=== PATIENT | female | born 1980 | race Caucasian/White ===

== ENCOUNTER 2018-04-01 08:41 | Emergency (ER) | payer MEDICAID, SELFPAY ==
[2018-04-01 08:42] VITALS: BP 165/84; PULSE 98; RESP 12; TEMP 35.7; O2SAT 95; BMI 49.1
--- NOTE | 2018-04-01 08:57 | ED.VISSUMM ---
- ER Visit Summary Date of Service: 04/01/18 Chief Complaint: Suprapubic pelvic pain. History of Present Illness: The patient is a 37 F past medical history of reflux and prior cholecystectomy. Patient states her last several menstrual periods have been heavier than normal. Her last menstrual period was March 27 and ended yesterday on March 31. She states she has had some suprapubic discomfort. Describes it as cramping. She denies any dysuria, hematuria, urgency nor frequency. She denies any constipation, diarrhea or melena. She denies any fever or weight loss. She does not believe that she is . She denies any vaginal discharge. She has never had any type of pelvic surgery. Physical Examination: Very well-appearing 37-year-old female. No acute distress. Vital signs are stable and afebrile. H EENT exam unremarkable. Neck nontender. Lungs clear to auscultation bilaterally. Heart regular rhythm no murmur. Abdomen is soft. Nondistended. Normal bowel sounds without peritoneal signs. She has very minimal suprapubic tenderness. Both the right upper right lower quadrants are completely unremarkable. There are no hernias or masses. There are no signs of trauma. The patient is obese. Patient moving all 4 extremities. They are neurovascularly intact. Neurologically she is awake and alert. Pelvic exam done with a female nurse present in the room. External exam is unremarkable. No lesions. Speculum exam there was no vaginal bleeding. No discharge. No lesions. No blood in the vaginal vault. On bimanual exam she had some uterine tenderness. Due to her body habitus I could not appreciate either ovary. Test Results: Urinalysis shows acute abnormality. No infection. Urine test is negative. Emergency Department Course and Treatment: I discussed with the patient all her test results. She is comfortable being discharged home and following up with her BRAND PROTECTION MANAGER office this week. Treatment Plan: Patient will be discharged to home. She will follow-up with her BRAND PROTECTION MANAGER office [facility]. Tylenol and Motrin for pain. Disposition: Discharge Impression: Pelvic pain and heavy menses of uncertain etiology This note was generated with [employer] software. It may contain incorrect words, spelling, and punctuation that were not noted in review of the chart prior to signing ED Disposition - Plan for ED Patient: Disposition: Home or Assisted Living Chief Complaint: Female C/O Instructions: ED Pelvic Pain [facility] Referrals: Sylvie Corral MD [STAFF PHYSICIAN] - As soon as possible Additional Instructions: Call and follow-up with your BRAND PROTECTION MANAGER office. They will want to reevaluate you and they will decide if you need a pelvic ultrasound. Tylenol and Motrin for pain.
--- NOTE | 2018-04-01 09:00 | ED.DCSUM_ITS ---
- ER Visit Summary Date of Service: 04/01/18 Chief Complaint: Suprapubic pelvic pain. History of Present Illness: The patient is a 37 F past medical history of reflux and prior cholecystectomy. Patient states her last several menstrual periods have been heavier than normal. Her last menstrual period was March 27 and ended yesterday on March 31. She states she has had some suprapubic discomfort. Describes it as cramping. She denies any dysuria, hematuria, urgency nor frequency. She denies any constipation, diarrhea or melena. She denies any fever or weight loss. She does not believe that she is . She denies any vaginal discharge. She has never had any type of pelvic surgery. Physical Examination: Very well-appearing 37-year-old female. No acute distress. Vital signs are stable and afebrile. H EENT exam unremarkable. Neck nontender. Lungs clear to auscultation bilaterally. Heart regular rhythm no murmur. Abdomen is soft. Nondistended. Normal bowel sounds without peritoneal signs. She has very minimal suprapubic tenderness. Both the right upper right lower quadrants are completely unremarkable. There are no hernias or masses. There are no signs of trauma. The patient is obese. Patient moving all 4 extremities. They are neurovascularly intact. Neurologically she is awake and alert. Pelvic exam done with a female nurse present in the room. External exam is unremarkable. No lesions. Speculum exam there was no vaginal bleeding. No discharge. No lesions. No blood in the vaginal vault. On bimanual exam she had some uterine tenderness. Due to her body habitus I could not appreciate either ovary. Test Results: Urinalysis shows acute abnormality. No infection. Urine test is negative. Emergency Department Course and Treatment: I discussed with the patient all her test results. She is comfortable being discharged home and following up with her ENGAGEMENT QUALITY CONSULTANT office this week. Treatment Plan: Patient will be discharged to home. She will follow-up with her ENGAGEMENT QUALITY CONSULTANT office at the [facility]. Tylenol and Motrin for pain. Disposition: Discharge Impression: Pelvic pain and heavy menses of uncertain etiology This note was generated with [employer] software. It may contain incorrect words, spelling, and punctuation that were not noted in review of the chart prior to signing ED Disposition - Plan for ED Patient: Disposition: Home or Assisted Living Chief Complaint: Female C/O Instructions: ED Pelvic Pain [facility] Referrals: Sylvie Corral MD [STAFF PHYSICIAN] - As soon as possible Additional Instructions: Call and follow-up with your ENGAGEMENT QUALITY CONSULTANT office. They will want to reevaluate you and they will decide if you need a pelvic ultrasound. Tylenol and Motrin for pain.
[2018-04-01 09:07] LABS: Bacteria 0 SEEN /hpf (None Seen); Mucous, Urine 0 SEEN /hpf (<or=2+); Red Blood Cells-Urine 0 SEEN /hpf (0-5)
[2018-04-01 09:09] LABS: Color, Urine Yellow (Yellow); Glucose, Dipstick Normal (Normal); Ketone-Dipstick Negative (Negative); Leukocyte Esterase-Dipstick 500 /ul (Negative); Nitrite-Dipstick Negative (Negative); Occult Blood-Urine 250 /ul (Negative); Protein-Dipstick 30 mg/dl (Negative); Urine Bilirubin Dipstick Negative (Negative); Urine Clarity Sl. Cloudy (Clear); Urine Urobilinogen Normal (Normal)
[2018-04-01 09:12] LABS: Internal QC Validated? YES +Cl - CLEAR BKGD; Pregnancy, Urine Negative Negative
[2018-04-01 09:16] LABS: Amorphous Sediment 1+; Squamous Epithelial Cells - UA 0-5 SEEN /hpf (5-10); White Blood Cells 0-5 SEEN /hpf (0-5)
--- NOTE | 2018-04-01 10:02 | ED.DEP ---
ED Disposition - Plan for ED Patient: Disposition: Home or Assisted Living Chief Complaint: Female C/O Instructions: ED Pelvic Pain [facility] Referrals: Sylvie Corral MD [STAFF PHYSICIAN] - As soon as possible Additional Instructions: Call and follow-up with your MANAGER STUDENT SERVICES office. They will want to reevaluate you and they will decide if you need a pelvic ultrasound. Tylenol and Motrin for pain.
[2018-04-01 10:18] VITALS: BP 139/90; PULSE 87; RESP 18; O2SAT 100
--- OUTSIDE RECORDS SUMMARY | 2018-05-25 22:42 | XMS RPT_ITS ---
:1980 Author Organization OHIP Care Team Providers Name Role Phone MARÍA CRUZ Attending Unavailable KINA SAMANIEGO ([employer]) Attending Unavailable UTE GLYNN (STRAIGHTENER) Attending Unavailable KINA SAMANIEGO ([employer]) Attending Unavailable KINA SAMANIEGO ([employer]) Referring Unavailable María Cruz Primary Care Unavailable Valentino Madera Attending Unavailable PROBLEMS PROBLEMS DATE TYPE CONDITION / CODE ATTENDING STATUS SOURCE 04/03/2018 Active Pelvic and NA Active [facility] perineal pain / [facility] [place] R10.2(ICD-10) Repository 01/27/2018 Active Encounter for NA Active [facility] immunization / [facility] Z23(ICD-10) Repository 05/09/2017 Active Unknown / MARÍA CRUZ Active [facility] UNK(Unknown) D [facility] [place] Repository PROCEDURES PROCEDURES No Procedure Records FoundRESULTS RESULTS PROGRESS Observed: 04/03/2018 Status: COMPLETED Source: [place] 2:16 PM [facility] REPOSITORY HNO ID: [id number] Author: Paloma Wright Service: (none) Author Type: Hoist Operator Type: Progress Notes Filed: 04/03/2018 2:17 PM Note Text: Radiology Service Progress Note PATIENT NAME: Juan Daniel Stern DATE OF SERVICE: April 03, 2018 TIME: 2:16 PM PATIENT IDENTITY VERIFICATION COMPLETED USING TWO (2) METHODS: Patient confirmed name verbally and Date of . PATIENT GENDER DATA: Female. status: : No status: N/A PATIENT RELEVANT IMPLANT DATA REVIEWED: Not Applicable RADIOLOGY DEPARTMENT: Ultrasound PERIPHERAL IV DATA: Not applicable SIGNED BY: PALOMA WRIGHT RDMS RVT April 03, 2018 2:16 PM US FEMALE PELVIS Observed: 04/03/2018 Status: F Source: [facility] 2:15 PM [facility] REPOSITORY * * *Final Report* * * DATE OF EXAM: Apr 03 2018 2:15PM [facility]U 1060 - US FEMALE PELVIS TRANSVAG / PROCEDURE REASON: Pelvic pain * * * * Physician Interpretation * * * * EXAMINATION: TRANSVAGINAL AND LIMITED TRANSABDOMINAL PELVIC ULTRASOUND CLINICAL HISTORY: Pelvic pain since menses ended 03/31/2018 TECHNIQUE: Sonography of the pelvis was performed by transvaginal and transabdominal (limited) techniques. Images were obtained and stored in a permanent archive. MQ: UFP_[id number] COMPARISON: 05/26/2015 RESULT: Uterus size: 7.4 x 5.0 x 4.2 cm -Orientation: Anteverted -Myometrium: Normal sonographic appearance. -Endometrial echo complex: 0.5 cm , normal thickness -Cervix: normal Right ovary: 2.3 x 3.1 x 2.2 cm. A few small cysts/follicles are seen, largest 1.5 cm Arterial and venous flow is present throughout the ovary on color Doppler imaging with normal spectral waveforms. Left ovary: 2.1 x 1.9 x 1.5 cm cm Normal sonographic appearance. Arterial and venous flow is present throughout the left ovary on color Doppler imaging with normal spectral waveforms. Pelvis free fluid: None. IMPRESSION: No significant abnormalities Companion: LUIZ Transcribe Date/Time: Apr 04 2018 2:04P Dictated by : THOM ECHEVERRIA MD This examination was interpreted and the report reviewed and electronically signed by: THOM ECHEVERRIA MD on Apr 04 2018 2:07PM EST [id number] CNOV Observed: 04/03/2018 Status: COMPLETED Source: [place] 9:00 AM [facility] REPOSITORY Office Visit (WOOB) JUAN DANIEL STERN ([id number]) 1980 F Date Time Provider Department 04/03/18 9:00 AM KINA SAMANIEGO (DHARMESH) WOOB During your visit today, we recorded the following information about you: Blood pressure Weight Last Period 120/70 125 kg 03/27/18 Kina Samaniego APRN.CNP 04/03/2018 9:14 AM Signed Juan Daniel Stern is a 37 year old female who presents for problem visit Pelvic pain for 3 days. HPI: pt states that her menses ended on Monday and then the pain started that night. Describes the pain as shooting pain mostly under the belly button into the pelvic region. Denies any fever, chills, or urinary issues. PAST MEDICAL HISTORY Diagnosis Date - Allergic rhinitis - Depression with anxiety 04/14/2010 - GERD (gastroesophageal reflux disease) - Migraine with aura 04/14/2010 - Morbid obesity with BMI of 50.0-59.9, adult (HCC) PAST SURGICAL HISTORY Procedure Laterality Date - DANDC, DIAG AND/OR THERAPEUTIC Dilation AND curettage - REMOVAL GALLBLADDER Cholecystectomy FAMILY HISTORY Problem Relation Age of Onset - Diabetes Maternal Grandfather - other (PARKINSONS) Paternal Grandfather - Diabetes Maternal Grandmother - Hypertension Maternal Grandmother - Diabetes Mother - Hypertension Mother - Diabetes Father - other (Dementia) Father Front Temperal - Heart Maternal Uncle [place] - Diabetes Maternal Uncle Social History Marital status: Spouse name: JIMMY STERN Years of education: 12 Number of children: 3 Occupational History 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 benzonatate (TESSALON PERLE) 100 mg capsule Take 2 capsules by mouth three times daily as needed. (Patient not taking: Reported on 04/03/2018 ) albuterol HFA (VENTOLIN HFA) 90 mcg/actuation inhaler Inhale 2 Puffs as instructed every 4 hours as needed for Wheezing/Shortness of Breath. Omeprazole 40 mg capsule Take 1 capsule by mouth once daily. ibuprofen (MOTRIN) 800 mg tablet Take 1 tablet by mouth every 8 hours as needed for Pain. Take with food. fluticasone (FLONASE) 50 mcg/actuation nasal spray Use 2 Sprays in each nostril once daily. (Patient not taking: Reported on 04/03/2018 ) No current facility-administered medications for this visit. Allergies As of Date: 04/03/2018 (No Known Allergies) Fully Assessed 04/03/2018 REVIEW OF SYSTEMS Abdomen: see HPI Bladder: No dysuria, gross hematuria, urinary frequency, urinary urgency, or incontinence. Expanded ROS: N/A Allergies and current medication updated:Yes EXAM: Wt 275 lb 9.6 oz (125.0kg) LMP 03/27/2018 GENERAL: pleasant, female in no apparent distress HEENT: Normocephalic, atraumatic, mucus membranes moist and no lesions CHEST: Normal inspiratory effort ABDOMEN: soft, no masses and Moderate tenderness in periumbilical area, suprapubic area PELVIC: external genitalia normal, normal Bartholin's glands, urethra, [place]'s glands, no vulvar lesions, no cervical lesions, good vaginal support, physiologic discharge present, normal appearing perineal body and perianal region BIMANUAL: no adnexal masses and Moderate tenderness NEURO: alert and oriented x3,exam grossly non-focal ASSESSMENT AND PLAN: Pelvic pain Pelvic ultrasound Will call with results Kina Samaniego APRN.DHARMESH Referring Provider: SELF [200] Allergies As of Date: 04/03/2018 (No Known Allergies) Date Reviewed: 04/03/2018 Reviewed by: Kina Osullivan) Danette - Fully Assessed Reason for Visit: Pain [78] Cmt: with menses Primary Visit Diagnosis:Pelvic pain [R10.2] Order(s):US FEMALE PELVIS TRANSVAG [[id number]] Order #: [id number] FUTURE Prescriptions as of 04/03/2018 Sig: FLUOXETINE 40 MG CAPSULE Take 1 capsule by mouth once * ALBUTEROL SULFATE HFA 90 MCG/* Inhale 2 Puffs as instructed * OMEPRAZOLE 40 MG CAPSULE,URIEL* Take 1 capsule by mouth once * IBUPROFEN 800 MG TABLET Take 1 tablet by mouth every * Problem List As Of Date 04/03/2018 Noted Resolved Migraine with aura [G43.109] INVALID FOR* Depression with anxiety [F41.8] INVALID FOR* Viral wart of left thumb [B07.9] INVALID FOR* Intradermal nevus: of L hand prox dorsal 3rd fi*INVALID FOR* Actinic skin damage [L57.8] INVALID FOR* Ephelides [L81.2] INVALID FOR* GERD (gastroesophageal reflux disease) [K21.9] Allergic rhinitis [J30.9] Fibrocystic breast changes [N60.19] INVALID FOR* Morbid obesity with BMI of 50.0-59.9, adult (HC* Medications Discontinued During This Encounter benzonatate (TESSALON PERLE) 100 mg * 30 c* 0 03/24/2018 04/03/2018 Route: ORAL Sig: Take 2 capsules by mouth three times daily as needed. Patient not taking: Reported on 04/03/2018 Disc: Reason for discontinue is not on file. fluticasone (FLONASE) 50 mcg/actuati* 1 Will* 1 05/09/2017 04/03/2018 Route: EACH NOSTRIL Sig: Use 2 Sprays in each nostril once daily. Patient not taking: Reported on 04/03/2018 Disc: Reason for discontinue is not on file. Encounter Status:Closed by KINA SAMANIEGO on 04/03/18 PROGRESS Observed: 04/03/2018 Status: COMPLETED Source: [place] 8:55 AM [facility] REPOSITORY O ID: [id number] Author: Kina Samaniego Service: (none) Author Type: Nurse Practitioner Type: Progress Notes Filed: 04/03/2018 9:14 AM Note Text: Juan Daniel Stern is a 37 year old female who presents for problem visit Pelvic pain for 3 days. HPI: pt states that her menses ended on Monday and then the pain started that night. Describes the pain as shooting pain mostly under the belly button into the pelvic region. Denies any fever, chills, or urinary issues. PAST MEDICAL HISTORY Diagnosis Date - Allergic rhinitis - Depression with anxiety 04/14/2010 - GERD (gastroesophageal reflux disease) - Migraine with aura 04/14/2010 - Morbid obesity with BMI of 50.0-59.9, adult (HCC) PAST SURGICAL HISTORY Procedure Laterality Date - DANDC, DIAG AND/OR THERAPEUTIC 7 Dilation AND curettage - REMOVAL GALLBLADDER Cholecystectomy FAMILY HISTORY Problem Relation Age of Onset - Diabetes Maternal Grandfather - other (PARKINSONS) Paternal Grandfather - Diabetes Maternal Grandmother - Hypertension Maternal Grandmother - Diabetes Mother - Hypertension Mother - Diabetes Father - other (Dementia) Father Front Temperal - Heart Maternal Uncle [place] - Diabetes Maternal Uncle Social History Marital status: Spouse name: JIMMY STERN Years of education: 12 Number of children: 3 Occupational History 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 benzonatate (TESSALON PERLE) 100 mg capsule Take 2 capsules by mouth three times daily as needed. (Patient not taking: Reported on 04/03/2018 ) albuterol HFA (VENTOLIN HFA) 90 mcg/actuation inhaler Inhale 2 Puffs as instructed every 4 hours as needed for Wheezing/Shortness of Breath. Omeprazole 40 mg capsule Take 1 capsule by mouth once daily. ibuprofen (MOTRIN) 800 mg tablet Take 1 tablet by mouth every 8 hours as needed for Pain. Take with food. fluticasone (FLONASE) 50 mcg/actuation nasal spray Use 2 Sprays in each nostril once daily. (Patient not taking: Reported on 04/03/2018 ) No current facility-administered medications for this visit. Allergies As of Date: 04/03/2018 (No Known Allergies) Fully Assessed 04/03/2018 REVIEW OF SYSTEMS Abdomen: see HPI Bladder: No dysuria, gross hematuria, urinary frequency, urinary urgency, or incontinence. Expanded ROS: N/A Allergies and current medication updated:Yes EXAM: Wt 275 lb 9.6 oz (125.0kg) LMP 03/27/2018 GENERAL: pleasant, female in no apparent distress HEENT: Normocephalic, atraumatic, mucus membranes moist and no lesions CHEST: Normal inspiratory effort ABDOMEN: soft, no masses and Moderate tenderness in periumbilical area, suprapubic area PELVIC: external genitalia normal, normal Bartholin's glands, urethra, [place]'s glands, no vulvar lesions, no cervical lesions, good vaginal support, physiologic discharge present, normal appearing perineal body and perianal region BIMANUAL: no adnexal masses and Moderate tenderness NEURO: alert and oriented x3,exam grossly non-focal ASSESSMENT AND PLAN: Pelvic pain Pelvic ultrasound Will call with results Kina Samaniego APRN.[employer] DISCHARGE INSTRUCTION Observed: 04/01/2018 Status: F Source: [place] 4:37 PM [facility] REPOSITORY [facility] Medical Records Department [address] [place] [address] Discharge Instruction 04/01/18 1002 MR#: [id number] Acct: [id number] Name: JUAN DANIEL STERN Rep #: [id number] : 1980 37 From: Valentino Madera MD PCP: María Cruz MD Status: DEP ER ED Disposition - Plan for ED Patient: Disposition: Home or Assisted Living Chief Complaint: Female C/O Instructions: ED Pelvic Pain UKO Referrals: Sylvie Corral MD [STAFF PHYSICIAN] - As soon as possible Additional Instructions: Call and follow-up with your SALES DEPARTMENT SUPERVISOR office. They will want to reevaluate you and they will decide if you need a pelvic ultrasound. Tylenol and Motrin for pain. What to do if you have Problems For any increased pain, shortness of breath, bleeding, nausea or vomiting, chest pain, or any unexpected problems, contact your Primary Care Provider. Call [facility] ([phone]) or report to the closest Emergency Room. Call 911 if necessary. 04/01/18 6597 <Electronically signed by Valentino Madera MD> Date Valentino Madera MD Cosigner Signature (If Indicated): Date CC: María Cruz MD EMERGENCY DEPARTMENT Observed: 04/01/2018 Status: F Source: [place] SUMMARY 4:37 PM [facility] REPOSITORY [facility] Medical Records Department [address] [place] [address] Emergency Department Summary 04/01/18 0857 MR#: [id number] Acct: [id number] Name: JUAN DANIEL STERN Rep #: [id number] : 1980 37 From: Valentino Madera MD PCP: María Cruz MD Status: DEP ER - ER Visit Summary Date of Service: 04/01/18 Chief Complaint: Suprapubic pelvic pain. History of Present Illness: The patient is a 37 F past medical history of reflux and prior cholecystectomy. Patient states her last several menstrual periods have been heavier than normal. Her last menstrual period was March 27 and ended yesterday on March 31. She states she has had some suprapubic discomfort. Describes it as cramping. She denies any dysuria, hematuria, urgency nor frequency. She denies any constipation, diarrhea or melena. She denies any fever or weight loss. She does not believe that she is . She denies any vaginal discharge. She has never had any type of pelvic surgery. Physical Examination: Very well-appearing 37-year-old female. No acute distress. Vital signs are stable and afebrile. H EENT exam unremarkable. Neck nontender. Lungs clear to auscultation bilaterally. Heart regular rhythm no murmur. Abdomen is soft. Nondistended. Normal bowel sounds without peritoneal signs. She has very minimal suprapubic tenderness. Both the right upper right lower quadrants are completely unremarkable. There are no hernias or masses. There are no signs of trauma. The patient is obese. Patient moving all 4 extremities. They are neurovascularly intact. Neurologically she is awake and alert. Pelvic exam done with a female nurse present in the room. External exam is unremarkable. No lesions. Speculum exam there was no vaginal bleeding. No discharge. No lesions. No blood in the vaginal vault. On bimanual exam she had some uterine tenderness. Due to her body habitus I could not appreciate either ovary. Test Results: Urinalysis shows acute abnormality. No infection. Urine test is negative. Emergency Department Course and Treatment: I discussed with the patient all her test results. She is comfortable being discharged home and following up with her SALES DEPARTMENT SUPERVISOR office this week. Treatment Plan: Patient will be discharged to home. She will follow-up with her SALES DEPARTMENT SUPERVISOR [facility]. Tylenol and Motrin for pain. Disposition: Discharge Impression: Pelvic pain and heavy menses of uncertain etiology This note was generated with [employer] dictation software. It may contain incorrect words, spelling, and punctuation that were not noted in review of the chart prior to signing ED Disposition - Plan for ED Patient: Disposition: Home or Assisted Living Chief Complaint: Female C/O Instructions: ED Pelvic Pain UKO Referrals: Sylvie Corral MD [STAFF PHYSICIAN] - As soon as possible Additional Instructions: Call and follow-up with your SALES DEPARTMENT SUPERVISOR office. They will want to reevaluate you and they will decide if you need a pelvic ultrasound. Tylenol and Motrin for pain. What to do if you have Problems For any increased pain, shortness of breath, bleeding, nausea or vomiting, chest pain, or any unexpected problems, contact your Primary Care Provider. Call [facility] ([phone]) or report to the closest Emergency Room. Call 911 if necessary. 04/01/18 1637 <Electronically signed by Valentino Madera MD> Date Valentino Madera MD Cosigner Signature (If Indicated): Date CC: María Cruz MD DISCHARGE INSTRUCTION Observed: 04/01/2018 Status: F Source: [place] 4:37 PM [facility] REPOSITORY [facility] Medical Records Department [address] [place] [address] Discharge Instruction 04/01/18 0900 MR#: [id number] Acct: [id number] Name: JUAN DANIEL STERN Rep #: [id number] : 1980 37 From: Valentino Madera MD PCP: María Cruz MD Status: DEP ER ED Disposition - Plan for ED Patient: Disposition: Home or Assisted Living Chief Complaint: Female C/O Instructions: ED Pelvic Pain UKO Referrals: Sylvie Corral MD [STAFF PHYSICIAN] - As soon as possible Additional Instructions: Call and follow-up with your SALES DEPARTMENT SUPERVISOR office. They will want to reevaluate you and they will decide if you need a pelvic ultrasound. Tylenol and Motrin for pain. What to do if you have Problems For any increased pain, shortness of breath, bleeding, nausea or vomiting, chest pain, or any unexpected problems, contact your Primary Care Provider. Call [facility] ([phone]) or report to the closest Emergency Room. Call 911 if necessary. 04/01/18 3939 <Electronically signed by Valentino Madera MD> Date Valentino Madera MD Cosigner Signature (If Indicated): Date CC: María Cruz MD URINALYSIS, COMPLETE Collected: 04/01/2018 Status: F Source: [place] 9:05 AM [facility] REPOSITORY Order Comment: How was Urine Obtained? CLEAN CATCH TYPE CODE TESTS RESULT OUT OF RANGE REFERENCE UNITS LAB L400.3000 Yellow COLOR Normal Yellow LAB L400.3050 Clear Normal CLARITY Sl. Cloudy LAB L400.3200 Normal mg/dl Normal GLUCOSE, UR Normal LAB L400.3300 Negative mg/dL Normal BILIRUBIN URINE Negative LAB L400.3400 Negative mg/dl Normal KETONE UR Negative LAB L400.3465 1.002-1.030 Normal SP.GR. DIPSTX 1.020 LAB L400.3550 5.0 - 8.0 pH UR Normal 6.0 LAB L400.3600 Negative mg/dl High PROT 30 DIPSTX LAB L400.3700 Normal mg/dl Normal UROBILI Normal LAB L400.3750 Negative Normal NITRITE UR Negative LAB L400.3780 Negative /ul High OCCULT BLOOD-UR 250 LAB L400.3800 Negative /ul High LEUK ESTERASE 500 LAB L400.4050 0-5 /hpf WBC Normal 0-5 SEEN LAB L400.4100 0-5 /hpf 0 Normal RBC-UA SEEN LAB L400.4150 5-10 /hpf SQUAM Normal EPI 0-5 SEEN LAB L400.4300 None Seen /hpf 0 Normal BACTERIA SEEN LAB L400.4350 <or=2+ /hpf 0 Normal MUCUS, URINE SEEN LAB L400.4900 1+ Normal AMORPHOUS Performed By: #### L400.0001 #### [facility] [address] [place], [address] ,URINE Collected: 04/01/2018 Status: F Source: [place] 9:05 AM [facility] REPOSITORY TYPE CODE TESTS RESULT OUT OF REFERENCE UNITS RANGE LAB L400.8000 Negative Normal HCGUQUAL Negative Result Comment: Very dilute urine specimens, as indicated by a low specific gravity, may not contain international sales representative levels of hCG. If is still suspected, a first morning urine specimen should be collected 48 hours later and tested. Performed By: #### L400.7600 #### [facility] [address] [facility] [place] [place], [address] PROGRESS Observed: 03/24/2018 Status: COMPLETED Source: [place] 9:50 AM [facility] REPOSITORY HNO ID: [id number] Author: Anderson Fu) Dolores Service: (none) Author Type: Physician Synchronizer Type: Progress Notes Filed: 03/24/2018 10:32 AM Note Text: Subjective HPI Patient presents with congestion and cough for the past 10 days. She states she started off with cold symptoms which have actually gotten better but she is Cough lingering. She had had some green mucus. No fever or chills. No chest pain or shortness of breath. No wheezing. She denies history of asthma. She had smoked for about 3 years but quit 7 years ago. No vomiting or diarrhea. The cough is keeping her up at night. No sick contacts. Review of Systems Constitutional: Negative. HENT: Positive for congestion. Negative for ear pain and sore throat. Eyes: Negative. Respiratory: Positive for cough. Negative for sputum production, shortness of breath and wheezing. Cardiovascular: Negative. Skin: Negative. All other systems reviewed and are negative. PAST MEDICAL HISTORY Diagnosis Date - Allergic rhinitis - Depression with anxiety 04/14/2010 - GERD (gastroesophageal reflux disease) - Migraine with aura 04/14/2010 - Morbid obesity with BMI of 50.0-59.9, adult (HCC) Current Outpatient Prescriptions: Omeprazole 40 mg capsule Take 1 capsule by mouth once daily. Disp: 90 capsule Rfl: 3 ibuprofen (MOTRIN) 800 mg tablet Take 1 tablet by mouth every 8 hours as needed for Pain. Take with food. Disp: 60 tablet Rfl: 3 fluticasone (FLONASE) 50 mcg/actuation nasal spray Use 2 Sprays in each nostril once daily. Disp: 1 Bottle Rfl: 1 benzonatate (TESSALON PERLE) 100 mg capsule Take 2 capsules by mouth three times daily as needed. Disp: 30 capsule Rfl: 0 predniSONE (DELTASONE) 20 mg tablet Take 2 tablets by mouth once daily for 5 days. Disp: 10 tablet Rfl: 0 albuterol HFA (VENTOLIN HFA) 90 mcg/actuation inhaler Inhale 2 Puffs as instructed every 4 hours as needed for Wheezing/Shortness of Breath. Disp: 1 Inhaler Rfl: 0 [START ON 03/27/2018] azithromycin (ZITHROMAX Z-BUBBA) 250 mg tablet Take 2 tablets day one, then, 1 tablet daily until gone. Disp: 1 Package Rfl: 0 No current facility-administered medications for this visit. PAST SURGICAL HISTORY Procedure Laterality Date - DANDC, DIAG AND/OR THERAPEUTIC Dilation AND curettage - REMOVAL GALLBLADDER Cholecystectomy FAMILY HISTORY Problem Relation Age of Onset - Diabetes Maternal Grandfather - other (PARKINSONS) Paternal Grandfather - Diabetes Maternal Grandmother - Hypertension Maternal Grandmother - Diabetes Mother - Hypertension Mother - Diabetes Father - other (Dementia) Father Front Temperal - Heart Maternal Uncle [place] - Diabetes Maternal Uncle Social History Substance Use Topics - Smoking status: Former Smoker Packs/day: 0.50 Years: 6.00 Types: Cigarettes Quit date: 05/03/2010 - Smokeless tobacco: Never Used - Alcohol use No BP 140/80 Pulse 100 Temp 37.2 ?C (98.9 ?F) (Left Tympanic) Resp 18 Wt 127 kg (280 lb) SpO2 98% BMI 50.24 kg/m? Objective Physical Exam Constitutional: She is oriented to person, place, and time and well-developed, well-nourished, and in no distress. HENT: Head: Normocephalic and atraumatic. Right Ear: Tympanic membrane, external ear and ear canal normal. Left Ear: Tympanic membrane, external ear and ear canal normal. Nose: Mucosal edema and rhinorrhea present. Mouth/Throat: Uvula is midline, oropharynx is clear and moist and mucous membranes are normal. Neck: Normal range of motion. Neck supple. Cardiovascular: Normal rate, regular rhythm and normal heart sounds. Pulmonary/Chest: Effort normal and breath sounds normal. No respiratory distress. She has no wheezes. She has no rales. Lymphadenopathy: She has no cervical adenopathy. Neurological: She is alert and oriented to person, place, and time. Skin: Skin is warm and dry. No rash noted. Psychiatric: Affect and judgment normal. Nursing note and vitals reviewed. ASSESSMENT/PLAN: 1. Bronchitis - ICD9: 490, ICD10: J40 Patient symptoms likely still viral this point. I'll treat her with prednisone, Tessalon, and an inhaler. Discussed with her that if she is not better in the next 4-5 days she can go ahead and fill the Z-Bubba but likely does not need it. Patient was comfortable with this plan. Her vital signs are stable she is auctioneering well. Lungs are clear.Discussed with patient concerning symptoms to go to the emergency department or follow up here. Pt agreeable with this plan. Anderson Ferrer PA-C CNOV Observed: 03/24/2018 Status: COMPLETED Source: [place] 9:45 AM [facility] REPOSITORY Office Visit (WSTR) JUAN DANIEL STERN ([id number]) 1980 F Date Time Provider Department 03/24/18 9:45 AM ANDERSON FERRER) NNEKAWSTR During your visit today, we recorded the following information about you: Temperature Pulse Respiration Blood pressure 98.9 degrees 100/minute 18/minute 140/80 Weight 127 kg Anderson Ferrer PA-C 03/24/2018 10:32 AM Signed Subjective HPI Patient presents with congestion and cough for the past 10 days. She states she started off with cold symptoms which have actually gotten better but she is Cough lingering. She had had some green mucus. No fever or chills. No chest pain or shortness of breath. No wheezing. She denies history of asthma. She had smoked for about 3 years but quit 7 years ago. No vomiting or diarrhea. The cough is keeping her up at night. No sick contacts. Review of Systems Constitutional: Negative. HENT: Positive for congestion. Negative for ear pain and sore throat. Eyes: Negative. Respiratory: Positive for cough. Negative for sputum production, shortness of breath and wheezing. Cardiovascular: Negative. Skin: Negative. All other systems reviewed and are negative. PAST MEDICAL HISTORY Diagnosis Date - Allergic rhinitis - Depression with anxiety 04/14/2010 - GERD (gastroesophageal reflux disease) - Migraine with aura 04/14/2010 - Morbid obesity with BMI of 50.0-59.9, adult ([facility]) Current Outpatient Prescriptions: Omeprazole 40 mg capsule Take 1 capsule by mouth once daily. Disp: 90 capsule Rfl: 3 ibuprofen (MOTRIN) 800 mg tablet Take 1 tablet by mouth every 8 hours as needed for Pain. Take with food. Disp: 60 tablet Rfl: 3 fluticasone (FLONASE) 50 mcg/actuation nasal spray Use 2 Sprays in each nostril once daily. Disp: 1 Bottle Rfl: 1 benzonatate (TESSALON PERLE) 100 mg capsule Take 2 capsules by mouth three times daily as needed. Disp: 30 capsule Rfl: 0 predniSONE (DELTASONE) 20 mg tablet Take 2 tablets by mouth once daily for 5 days. Disp: 10 tablet Rfl: 0 albuterol HFA (VENTOLIN HFA) 90 mcg/actuation inhaler Inhale 2 Puffs as instructed every 4 hours as needed for Wheezing/Shortness of Breath. Disp: 1 Inhaler Rfl: 0 [START ON 03/27/2018] azithromycin (ZITHROMAX Z-BUBBA) 250 mg tablet Take 2 tablets day one, then, 1 tablet daily until gone. Disp: 1 Package Rfl: 0 No current facility-administered medications for this visit. PAST SURGICAL HISTORY Procedure Laterality Date - DANDC, DIAG AND/OR THERAPEUTIC Dilation AND curettage - REMOVAL GALLBLADDER Cholecystectomy FAMILY HISTORY Problem Relation Age of Onset - Diabetes Maternal Grandfather - other (PARKINSONS) Paternal Grandfather - Diabetes Maternal Grandmother - Hypertension Maternal Grandmother - Diabetes Mother - Hypertension Mother - Diabetes Father - other (Dementia) Father Front Temperal - Heart Maternal Uncle [place] - Diabetes Maternal Uncle Social History Substance Use Topics - Smoking status: Former Smoker Packs/day: 0.50 Years: 6.00 Types: Cigarettes Quit date: 05/03/2010 - Smokeless tobacco: Never Used - Alcohol use No BP 140/80 Pulse 100 Temp 37.2 ?C (98.9 ?F) (Left Tympanic) Resp 18 Wt 127 kg (280 lb) SpO2 98% BMI 50.24 kg/m? Objective Physical Exam Constitutional: She is oriented to person, place, and time and well-developed, well-nourished, and in no distress. HENT: Head: Normocephalic and atraumatic. Right Ear: Tympanic membrane, external ear and ear canal normal. Left Ear: Tympanic membrane, external ear and ear canal normal. Nose: Mucosal edema and rhinorrhea present. Mouth/Throat: Uvula is midline, oropharynx is clear and moist and mucous membranes are normal. Neck: Normal range of motion. Neck supple. Cardiovascular: Normal rate, regular rhythm and normal heart sounds. Pulmonary/Chest: Effort normal and breath sounds normal. No respiratory distress. She has no wheezes. She has no rales. Lymphadenopathy: She has no cervical adenopathy. Neurological: She is alert and oriented to person, place, and time. Skin: Skin is warm and dry. No rash noted. Psychiatric: Affect and judgment normal. Nursing note and vitals reviewed. ASSESSMENT/PLAN: 1. Bronchitis - ICD9: 490, ICD10: J40 Patient symptoms likely still viral this point. I'll treat her with prednisone, Tessalon, and an inhaler. Discussed with her that if she is not better in the next 4-5 days she can go ahead and fill the Z-Bubba but likely does not need it. Patient was comfortable with this plan. Her vital signs are stable she is auctioneering well. Lungs are clear.Discussed with patient concerning symptoms to go to the emergency department or follow up here. Pt agreeable with this plan. Anderson Ferrer PA-C Referring Provider: SELF [200] Allergies As of Date: 03/24/2018 (No Known Allergies) Date Reviewed: 03/24/2018 Reviewed by: Shelby Alvarado Ma - Fully Assessed Reason for Visit: Cough [28] Primary Visit Diagnosis:Bronchitis [J40] Order(s):benzonatate (TESSALON PERLE) 100 mg capsuleTake 2 capsules by mouth three times daily as needed.Disp: 30 capsuleRfl: 0 predniSONE (DELTASONE) 20 mg tabletTake 2 tablets by mouth once daily for 5 days.Disp: 10 tabletRfl: 0 albuterol HFA (VENTOLIN HFA) 90 mcg/actuation inhalerInhale 2 Puffs as instructed every 4 hours as needed for Wheezing/Shortness of Breath.Disp: 1 InhalerRfl: 0 [START ON 03/27/2018] azithromycin (ZITHROMAX Z-BUBBA) 250 mg tabletTake 2 tablets day one, then, 1 tablet daily until gone.Disp: 1 PackageRfl: 0 Prescriptions as of 03/24/2018 Sig: OMEPRAZOLE 40 MG CAPSULE,URIEL* Take 1 capsule by mouth once * IBUPROFEN 800 MG TABLET Take 1 tablet by mouth every * FLUTICASONE 50 MCG/ACTUATION * Use 2 Sprays in each nostril * BENZONATATE 100 MG CAPSULE Take 2 capsules by mouth thre* PREDNISONE 20 MG TABLET Take 2 tablets by mouth once * ALBUTEROL SULFATE HFA 90 MCG/* Inhale 2 Puffs as instructed * AZITHROMYCIN 250 MG TABLET Take 2 tablets day one, then,* Problem List As Of Date 03/24/2018 Noted Resolved Migraine with aura [G43.109] INVALID FOR* Depression with anxiety [F41.8] INVALID FOR* Viral wart of left thumb [B07.9] INVALID FOR* Intradermal nevus: of L hand prox dorsal 3rd fi*INVALID FOR* Actinic skin damage [L57.8] INVALID FOR* Ephelides [L81.2] INVALID FOR* GERD (gastroesophageal reflux disease) [K21.9] Allergic rhinitis [J30.9] Fibrocystic breast changes [N60.19] INVALID FOR* Morbid obesity with BMI of 50.0-59.9, adult ([facility]* Prescriptions ordered this encounter Disp Refills Start End BENZONATATE 100 MG CAPSULE 30 c* 0 03/24/2018 Route: ORAL Sig: Take 2 capsules by mouth three times daily as needed. PREDNISONE 20 MG TABLET 10 t* 0 03/24/2018 03/29/2018 Route: ORAL Sig: Take 2 tablets by mouth once daily for 5 days. ALBUTEROL SULFATE HFA 90 MCG/ACTUATI* 1 In* 0 03/24/2018 Route: INHALATION Sig: Inhale 2 Puffs as instructed every 4 hours as needed for Wheezing/Shortness of Breath. AZITHROMYCIN 250 MG TABLET 1 Pa* 0 03/27/2018 04/01/2018 Class: Print RX Sig: Take 2 tablets day one, then, 1 tablet daily until gone. Encounter Status:Closed by ANDERSON FERRER PA-C on 03/24/18 CNNURSE Observed: 01/27/2018 Status: COMPLETED Source: [place] 10:40 AM [facility] REPOSITORY Nurse Visit (CORWST) JUAN DANIEL STERN ([id number]) 1980 F Date Time Provider Department 01/27/18 10:40 AM NURSE [facility] CORW[facility] During your visit today, we recorded the following information about you: Sonal Mcfarlane LPN 01/27/2018 10:44 AM Signed 37 year old female here for INACTIVATED INFLUENZA VACCINE. [id number] Season Patient is identified by name and date of : Yes [] CONTRAINDICATIONS color enhanced section Age less than 6 months? No Allergy to eggs, chicken, chicken feathers, or chicken dander? No Allergy to thimerosal (a preservative) or formaldehyde, gelatin? No History of severe reaction to any vaccine component or a previous dose of influenza vaccination? No History of Guillain-Greenway Syndrome within 6 weeks after a previous influenza vaccine? No Patient is not moderately or severely ill? No Current temperature greater or equal to 100.4F? No History of Bone Marrow Transplant prior 6 months or solid organ transplant in the past 3 months ? No History of fainting after a prior injection or medical procedure? No- ? If patient has fainted in the past, the CDC recommends sitting or lying down for 15 minutes after the vaccination. [] VERIFICATION color enhanced section Was the answer Yes for any of the above contraindications? No contraindications present. Acceptable to proceed with vaccine. Patient/guardian agrees the above answers are true to the best of their knowledge? Yes Flu vaccine information sheet given? Yes See immunization activity in [facility] for details of immunizations adminstered today. Patient age: [age] year old For The 4717-7902 Flu Season 6-35 months old: Fluzone 0.25 ml - IM (Preservative Free) 3 years of age: Fluzone 0.5 ml - IM (Preservative Free) 3 years and older: Fluzone 0.5 ml- IM-(with Preservatives) 65+ years old: 2-49 years old Fluzone High-Dose 0.5 ml - IM (Preservative Free) FLUMIST- intranasal REMEMBER: If patient is less than 9 years of age and this is the first vaccine of Influenza to be received in any flu season, they should receive a second dose in one months time. Referring Provider: SELF [200] Allergies As of Date: 01/27/2018 (No Known Allergies) Date Reviewed: 11/13/2017 Reviewed by: Ning Sequeira LPN - Fully Assessed Reason for Visit: Imm/Inj [58] Cmt: Flu Vaccine Primary Visit Diagnosis:Need for vaccination [Z23] Order(s):INFLUENZA VACCINE QUADRIVALENT AGE 3 YRS PLUS + IM [[id number]] Order #: [id number] Prescriptions as of 01/27/2018 Sig: OMEPRAZOLE 40 MG CAPSULE,URIEL* Take 1 capsule by mouth once * IBUPROFEN 800 MG TABLET Take 1 tablet by mouth every * FLUTICASONE 50 MCG/ACTUATION * Use 2 Sprays in each nostril * Problem List As Of Date 01/27/2018 Noted Resolved Migraine with aura [G43.109] INVALID FOR* Depression with anxiety [F41.8] INVALID FOR* Viral wart of left thumb [B07.9] INVALID FOR* Intradermal nevus: of L hand prox dorsal 3rd fi*INVALID FOR* Actinic skin damage [L57.8] INVALID FOR* Ephelides [L81.2] INVALID FOR* GERD (gastroesophageal reflux disease) [K21.9] Allergic rhinitis [J30.9] Fibrocystic breast changes [N60.19] INVALID FOR* Morbid obesity with BMI of 50.0-59.9, adult ([facility]* Encounter Status:Closed by SONAL MCFARLANE LPN on 01/27/18 PROGRESS Observed: 01/25/2018 Status: COMPLETED Source: [place] 10:18 AM [facility] REPOSITORY HNO ID: [id number] Author: Sonal Mcfarlane LPN Service: (none) Author Type: (none) Type: Progress Notes Filed: 01/27/2018 10:44 AM Note Text: 37 year old female here for INACTIVATED INFLUENZA VACCINE. [id number] Season Patient is identified by name and date of : Yes [] CONTRAINDICATIONS color enhanced section Age less than 6 months? No Allergy to eggs, chicken, chicken feathers, or chicken dander? No Allergy to thimerosal (a preservative) or formaldehyde, gelatin? No History of severe reaction to any vaccine component or a previous dose of influenza vaccination? No History of Guillain-Greenway Syndrome within 6 weeks after a previous influenza vaccine? No Patient is not moderately or severely ill? No Current temperature greater or equal to 100.4F? No History of Bone Marrow Transplant prior 6 months or solid organ transplant in the past 3 months ? No History of fainting after a prior injection or medical procedure? No- ? If patient has fainted in the past, the CDC recommends sitting or lying down for 15 minutes after the vaccination. [] VERIFICATION color enhanced section Was the answer Yes for any of the above contraindications? No contraindications present. Acceptable to proceed with vaccine. Patient/guardian agrees the above answers are true to the best of their knowledge? Yes Flu vaccine information sheet given? Yes See immunization activity in [facility] for details of immunizations adminstered today. Patient age: [age] year old For The 8763-5064 Flu Season 6-35 months old: Fluzone 0.25 ml - IM (Preservative Free) 3 years of age: Fluzone 0.5 ml - IM (Preservative Free) 3 years and older: Fluzone 0.5 ml- IM-(with Preservatives) 65+ years old: 2-49 years old Fluzone High-Dose 0.5 ml - IM (Preservative Free) FLUMIST- intranasal REMEMBER: If patient is less than 9 years of age and this is the first vaccine of Influenza to be received in any flu season, they should receive a second dose in one months time. PROGRESS Observed: 11/13/2017 Status: COMPLETED Source: [place] 3:12 PM [facility] REPOSITORY [facility] ID: [id number] Author: Ute Umana) Renard Service: (none) Author Type: Nurse Specialist Type: Progress Notes Filed: 11/13/2017 3:19 PM Note Text: OUTPATIENT VISIT DATE November 13, 2017 OUTPATIENT VISIT TYPE ESTABLISHED PRIMARY CARE PHYSICIAN: María Cruz MD CHIEF COMPLAINT: Patient presents with: F/U 6 Month History of Present Illness: Juan Daniel Stern is a 37 year old female who was last seen 05/2017 by María Cruz MD. She has been seen in the past for ACTIVE PROBLEM LIST Migraine With Aura Depression With Anxiety Viral wart of left thumb Intradermal nevus: of L hand prox dorsal 3rd finger Actinic Skin Damage Ephelides Gerd (Gastroesophageal Reflux Disease) Allergic Rhinitis Fibrocystic Breast Changes Morbid Obesity With Bmi of 50.0-59.9, Adult ([facility]) Presents today for follow up visit. Since the last visit, she states that she's been watching her diet and exercising. Walking or sitting in the pool most days of the week. Since last year she's lost about 30 pounds. She reports that ibuprofen works better for her headaches and menstrual cramps than naproxen, she would like to switch back to ibuprofen Allergies currently well controlled with fluticasone, no current complaints. Allergies are worse at the beginning of the spring now resolved primarily Does have reflux, currently well controlled with omeprazole every other day. Without report of nausea vomiting diarrhea constipation or abdominal pain. No recent hospital or ED visits. No new medical problems or medications. Able to obtain medications. No problems with taking medications or note side effects. PAST MEDICAL HISTORY Diagnosis Date - Allergic rhinitis - Depression with anxiety 04/14/2010 - GERD (gastroesophageal reflux disease) - Migraine with aura 04/14/2010 - Morbid obesity with BMI of 50.0-59.9, adult ([facility]) PAST SURGICAL HISTORY Procedure Laterality Date - DANDC, DIAG AND/OR THERAPEUTIC Dilation AND curettage - REMOVAL GALLBLADDER Cholecystectomy FAMILY HISTORY Problem Relation Age of Onset - Diabetes Maternal Grandfather - PARKINSONS [OTHER] Paternal Grandfather - Diabetes Maternal Grandmother - Hypertension Maternal Grandmother - Diabetes Mother - Hypertension Mother - Diabetes Father - Dementia [OTHER] Father Front Temperal - Heart Maternal Uncle [place] - Diabetes Maternal Uncle Social History Substance Use Topics - Smoking status: Former Smoker Packs/day: 0.50 Years: 6.00 Types: Cigarettes Quit date: 05/03/2010 - Smokeless tobacco: Never Used - Alcohol use No ALLERGIES: ALLERGIES No Known Allergies MEDICATIONS Omeprazole 40 mg capsule Take 1 capsule by mouth once daily. fluticasone (FLONASE) 50 mcg/actuation nasal spray Use 2 Sprays in each nostril once daily. ibuprofen (MOTRIN) 800 mg tablet Take 1 tablet by mouth every 8 hours as needed for Pain. Take with food. REVIEW OF SYSTEMS: GENERAL: Negative for: Weight loss or gain, Fever or Chills, Weakness and Sleep difficulties. Physical Examination: BP 126/78 Pulse 72 Resp 16 Wt 288 lb (130.6kg) BP w/Orthostatic Vitals Date and Time Orthostatic BP Orthostatic Pulse BP Pulse BP Position BP Site BP Cuff Size 11/13/17 1417 -- -- 126/78 72 Sitting Left Arm Large Adult Peak Flow Date and Time PF Resp 11/13/17 1417 -- 16 General appearance: Well appearing, alert, in no acute distress, well-hydrated, well nourished. Skin: Skin color, texture, turgor normal, no suspicious rashes or lesions Head: Normocephalic, no masses, lesions, tenderness or abnormalities Eyes: Anicteric sclera. Pupils are equally round and reactive to light. Extraocular movements are intact. Ears: External ears normal, canals clear, TM's normal Nose/Sinuses: Nares normal, septum midline, mucosa normal, no drainage or sinus tenderness Oropharynx: Lips, mucosa, and tongue normal, teeth and gums normal, oropharynx normal Neck: Supple, no adenopathy; thyroid symmetric, normal size, no bruits Back: Normal exam Lungs: Lungs clear to auscultation. No wheezing, rhonchi, rales Heart: RRR without murmur, gallop, or rubs. No ectopy Abdomen: Normal abdominal exam, Abdomen soft, non-tender. Bowel sounds normal. No masses, organomegaly Extremities: No deformities, edema, skin discoloration, clubbing or cyanosis. Good capillary refill. Musculoskeletal: Spine range of motion normal. Muscular strength intact, No joint swelling, deformity, or tenderness Peripheral pulses: Normal Neuro: Gait normal. Reflexes normal and symmetric. Sensation grossly intact. Reviewed chart, outside records, tests I personally interviewed, confirmed and edited the above information if obtained by others. TESTING: Glucose (mg/dL) Date Value 03/14/2016 86 Potassium (mmol/L) Date Value 03/14/2016 4.1 Sodium (mmol/L) Date Value 03/14/2016 138 Chloride (mmol/L) Date Value 03/14/2016 98 CO2 (mmol/L) Date Value 03/14/2016 23 Creatinine (mg/dL) Date Value 03/14/2016 0.78 BUN (mg/dL) Date Value 03/14/2016 8 Anion Gap (mmol/L) Date Value 03/14/2016 17 Calcium (mg/dL) Date Value 03/14/2016 9.4 Glucose (mg/dL) Date Value 03/14/2016 86 Potassium (mmol/L) Date Value 03/14/2016 4.1 Sodium (mmol/L) Date Value 03/14/2016 138 Chloride (mmol/L) Date Value 03/14/2016 98 CO2 (mmol/L) Date Value 03/14/2016 23 Creatinine (mg/dL) Date Value 03/14/2016 0.78 BUN (mg/dL) Date Value 03/14/2016 8 Anion Gap (mmol/L) Date Value 03/14/2016 17 Calcium (mg/dL) Date Value 03/14/2016 9.4 Protein, Total (g/dL) Date Value 03/14/2016 8.1 Albumin (g/dL) Date Value 03/14/2016 4.1 Bilirubin, Total (mg/dL) Date Value 03/14/2016 0.3 Alkaline Phosphatase (U/L) Date Value 03/14/2016 105 AST (U/L) Date Value 03/14/2016 50 ALT (U/L) Date Value 03/14/2016 50 Hemoglobin (g/dL) Date Value 03/14/2016 12.4 Hematocrit (%) Date Value 03/14/2016 38.2 WBC (k/uL) Date Value 03/14/2016 7.58 Cholesterol, Total (mg/dL) Date Value 07/02/2012 155 HDL Cholesterol (mg/dL) Date Value 07/02/2012 52 LDL Cholesterol (mg/dL) Date Value 07/02/2012 88 Triglyceride (mg/dL) Date Value 07/02/2012 77 No results found for: HBA1C Ejection Fraction: No results found IMPRESSION: Ms. Stern is a 37 year old woman presents for routine follow- up visit After my examination and review of data, I make the following recommendations. PLAN AND RECOMMENDATIONS: 1. Migraine with aura and without status migrainosus, not intractable - ICD9: 346.00, ICD10: G43.109 2. Dysmenorrhea - ICD9: 625.3, ICD10: N94.6 Both are better controlled with ibuprofen versus naproxen, she will switch back to this - IBUPROFEN 800 MG TABLET 3. Class 3 severe obesity due to excess calories without serious comorbidity with body mass index (BMI) of 50.0 to 59.9 in adult (HCC) - ICD9: 278.01, V85.43, ICD10: E66.01, Z68.43 (primary diagnosis) To be congratulated! She has lost weight, 30 lbs since last here with diet and exercise 4. Gastroesophageal reflux disease without esophagitis - ICD9: 530.81, ICD10: K21.9 Well controlled with QOD omeprazole 5. Non-seasonal allergic rhinitis, unspecified trigger - ICD9: 477.8, ICD10: J30.89 Well controlled currently Follow up 6 months with María Cruz MD. Advised to go to ER if develops chest pain, shortness of breath, or severe worsening of symptoms. Discussed risks, benefits, alternatives, and potential side effects of medications. Ms. Stern expressed understanding and agreed with the plan. Ute Glynn APRN.STRAIGHTENER CNOV Observed: 11/13/2017 Status: COMPLETED Source: [place] 2:20 PM [facility] REPOSITORY Office Visit (INTMWS) JUAN DANIEL STERN ([id number]) 1980 F Date Time Provider Department 11/13/17 2:20 PM UTE GLYNN ([facility]) INTMWS During your visit today, we recorded the following information about you: Pulse Respiration Blood pressure Weight 72/minute 16/minute 126/78 130.6 kg Ute Glynn APRN.CNS 11/13/2017 3:19 PM Signed OUTPATIENT VISIT DATE November 13, 2017 OUTPATIENT VISIT TYPE ESTABLISHED PRIMARY CARE PHYSICIAN: María Cruz MD CHIEF COMPLAINT: Patient presents with: F/U 6 Month History of Present Illness: Juan Daniel Stern is a 37 year old female who was last seen 05/2017 by María Cruz MD. She has been seen in the past for ACTIVE PROBLEM LIST Migraine With Aura Depression With Anxiety Viral wart of left thumb Intradermal nevus: of L hand prox dorsal 3rd finger Actinic Skin Damage Ephelides Gerd (Gastroesophageal Reflux Disease) Allergic Rhinitis Fibrocystic Breast Changes Morbid Obesity With Bmi of 50.0-59.9, Adult ([facility]) Presents today for follow up visit. Since the last visit, she states that she's been watching her diet and exercising. Walking or sitting in the pool most days of the week. Since last year she's lost about 30 pounds. She reports that ibuprofen works better for her headaches and menstrual cramps than naproxen, she would like to switch back to ibuprofen Allergies currently well controlled with fluticasone, no current complaints. Allergies are worse at the beginning of the spring now resolved primarily Does have reflux, currently well controlled with omeprazole every other day. Without report of nausea vomiting diarrhea constipation or abdominal pain. No recent hospital or ED visits. No new medical problems or medications. Able to obtain medications. No problems with taking medications or note side effects. PAST MEDICAL HISTORY Diagnosis Date - Allergic rhinitis - Depression with anxiety 04/14/2010 - GERD (gastroesophageal reflux disease) - Migraine with aura 04/14/2010 - Morbid obesity with BMI of 50.0-59.9, adult ([facility]) PAST SURGICAL HISTORY Procedure Laterality Date - DANDC, DIAG AND/OR THERAPEUTIC Dilation AND curettage - REMOVAL GALLBLADDER Cholecystectomy FAMILY HISTORY Problem Relation Age of Onset - Diabetes Maternal Grandfather - PARKINSONS [OTHER] Paternal Grandfather - Diabetes Maternal Grandmother - Hypertension Maternal Grandmother - Diabetes Mother - Hypertension Mother - Diabetes Father - Dementia [OTHER] Father Front Temperal - Heart Maternal Uncle [place] - Diabetes Maternal Uncle Social History Substance Use Topics - Smoking status: Former Smoker Packs/day: 0.50 Years: 6.00 Types: Cigarettes Quit date: 05/03/2010 - Smokeless tobacco: Never Used - Alcohol use No ALLERGIES: ALLERGIES No Known Allergies MEDICATIONS Omeprazole 40 mg capsule Take 1 capsule by mouth once daily. fluticasone (FLONASE) 50 mcg/actuation nasal spray Use 2 Sprays in each nostril once daily. ibuprofen (MOTRIN) 800 mg tablet Take 1 tablet by mouth every 8 hours as needed for Pain. Take with food. REVIEW OF SYSTEMS: GENERAL: Negative for: Weight loss or gain, Fever or Chills, Weakness and Sleep difficulties. Physical Examination: BP 126/78 Pulse 72 Resp 16 Wt 288 lb (130.6kg) BP w/Orthostatic Vitals Date and Time Orthostatic BP Orthostatic Pulse BP Pulse BP Position BP Site BP Cuff Size 11/13/17 1417 -- -- 126/78 72 Sitting Left Arm Large Adult Peak Flow Date and Time PF Resp 11/13/17 1417 -- 16 General appearance: Well appearing, alert, in no acute distress, well-hydrated, well nourished. Skin: Skin color, texture, turgor normal, no suspicious rashes or lesions Head: Normocephalic, no masses, lesions, tenderness or abnormalities Eyes: Anicteric sclera. Pupils are equally round and reactive to light. Extraocular movements are intact. Ears: External ears normal, canals clear, TM's normal Nose/Sinuses: Nares normal, septum midline, mucosa normal, no drainage or sinus tenderness Oropharynx: Lips, mucosa, and tongue normal, teeth and gums normal, oropharynx normal Neck: Supple, no adenopathy; thyroid symmetric, normal size, no bruits Back: Normal exam Lungs: Lungs clear to auscultation. No wheezing, rhonchi, rales Heart: RRR without murmur, gallop, or rubs. No ectopy Abdomen: Normal abdominal exam, Abdomen soft, non-tender. Bowel sounds normal. No masses, organomegaly Extremities: No deformities, edema, skin discoloration, clubbing or cyanosis. Good capillary refill. Musculoskeletal: Spine range of motion normal. Muscular strength intact, No joint swelling, deformity, or tenderness Peripheral pulses: Normal Neuro: Gait normal. Reflexes normal and symmetric. Sensation grossly intact. Reviewed chart, outside records, tests I personally interviewed, confirmed and edited the above information if obtained by others. TESTING: Glucose (mg/dL) Date Value 03/14/2016 86 Potassium (mmol/L) Date Value 03/14/2016 4.1 Sodium (mmol/L) Date Value 03/14/2016 138 Chloride (mmol/L) Date Value 03/14/2016 98 CO2 (mmol/L) Date Value 03/14/2016 23 Creatinine (mg/dL) Date Value 03/14/2016 0.78 BUN (mg/dL) Date Value 03/14/2016 8 Anion Gap (mmol/L) Date Value 03/14/2016 17 Calcium (mg/dL) Date Value 03/14/2016 9.4 Glucose (mg/dL) Date Value 03/14/2016 86 Potassium (mmol/L) Date Value 03/14/2016 4.1 Sodium (mmol/L) Date Value 03/14/2016 138 Chloride (mmol/L) Date Value 03/14/2016 98 CO2 (mmol/L) Date Value 03/14/2016 23 Creatinine (mg/dL) Date Value 03/14/2016 0.78 BUN (mg/dL) Date Value 03/14/2016 8 Anion Gap (mmol/L) Date Value 03/14/2016 17 Calcium (mg/dL) Date Value 03/14/2016 9.4 Protein, Total (g/dL) Date Value 03/14/2016 8.1 Albumin (g/dL) Date Value 03/14/2016 4.1 Bilirubin, Total (mg/dL) Date Value 03/14/2016 0.3 Alkaline Phosphatase (U/L) Date Value 03/14/2016 105 AST (U/L) Date Value 03/14/2016 50 ALT (U/L) Date Value 03/14/2016 50 Hemoglobin (g/dL) Date Value 03/14/2016 12.4 Hematocrit (%) Date Value 03/14/2016 38.2 WBC (k/uL) Date Value 03/14/2016 7.58 Cholesterol, Total (mg/dL) Date Value 07/02/2012 155 HDL Cholesterol (mg/dL) Date Value 07/02/2012 52 LDL Cholesterol (mg/dL) Date Value 07/02/2012 88 Triglyceride (mg/dL) Date Value 07/02/2012 77 No results found for: HBA1C Ejection Fraction: No results found IMPRESSION: Ms. Stern is a 37 year old woman presents for routine follow- up visit After my examination and review of data, I make the following recommendations. PLAN AND RECOMMENDATIONS: 1. Migraine with aura and without status migrainosus, not intractable - ICD9: 346.00, ICD10: G43.109 2. Dysmenorrhea - ICD9: 625.3, ICD10: N94.6 Both are better controlled with ibuprofen versus naproxen, she will switch back to this - IBUPROFEN 800 MG TABLET 3. Class 3 severe obesity due to excess calories without serious comorbidity with body mass index (BMI) of 50.0 to 59.9 in adult ([facility]) - ICD9: 278.01, V85.43, ICD10: E66.01, Z68.43 (primary diagnosis) To be congratulated! She has lost weight, 30 lbs since last here with diet and exercise 4. Gastroesophageal reflux disease without esophagitis - ICD9: 530.81, ICD10: K21.9 Well controlled with QOD omeprazole 5. Non-seasonal allergic rhinitis, unspecified trigger - ICD9: 477.8, ICD10: J30.89 Well controlled currently Follow up 6 months with María Cruz MD. Advised to go to ER if develops chest pain, shortness of breath, or severe worsening of symptoms. Discussed risks, benefits, alternatives, and potential side effects of medications. Ms. Stern expressed understanding and agreed with the plan. Ute Glynn APRN.[email or web address] Referring Provider: SELF [[id number]] Allergies As of Date: 11/13/2017 (No Known Allergies) Date Reviewed: 11/13/2017 Reviewed by: Ning Sequeira LPN - Fully Assessed Reason for Visit: F/U 6 Month [444] Primary Visit Diagnosis:Class 3 severe obesity due to excess calories without serious comorbidity with body mass index (BMI) of 50.0 to 59.9 in adult ([facility]) [E66.01, Z68.43] Other Visit Diagnoses:Migraine with aura and without status migrainosus, not intractable [G43.109] Dysmenorrhea [N94.6] Comment:getting perimenopausal; ibuprofen effective Gastroesophageal reflux disease without esophagitis [K21.9] Non-seasonal allergic rhinitis, unspecified trigger [J30.89] Order(s):ibuprofen (MOTRIN) 800 mg tabletTake 1 tablet by mouth every 8 hours as needed for Pain. Take with food.Disp: 60 tabletRfl: 3 Prescriptions as of 11/13/2017 Sig: OMEPRAZOLE 40 MG CAPSULE,URIEL* Take 1 capsule by mouth once * FLUTICASONE 50 MCG/ACTUATION * Use 2 Sprays in each nostril * IBUPROFEN 800 MG TABLET Take 1 tablet by mouth every * Problem List As Of Date 11/13/2017 Noted Resolved Migraine with aura [G43.109] INVALID FOR* Depression with anxiety [F41.8] INVALID FOR* Viral wart of left thumb [B07.9] INVALID FOR* Intradermal nevus: of L hand prox dorsal 3rd fi*INVALID FOR* Actinic skin damage [L57.8] INVALID FOR* Ephelides [L81.2] INVALID FOR* GERD (gastroesophageal reflux disease) [K21.9] Allergic rhinitis [J30.9] Fibrocystic breast changes [N60.19] INVALID FOR* Morbid obesity with BMI of 50.0-59.9, adult ([facility]* Prescriptions ordered this encounter Disp Refills Start End IBUPROFEN 800 MG TABLET 60 t* 3 11/13/2017 Route: ORAL Sig: Take 1 tablet by mouth every 8 hours as needed for Pain. Take with food. Medications Discontinued During This Encounter albuterol (PROVENTIL) 2.5 mg /3 mL (* 3 mL 0 06/18/2017 11/13/2017 Class: In Office Route: NEBULIZATION -UNSPEC Sig: Use 3 mL via nebulizer one time only for 1 dose. Use over 5-15minutes. Disc: Reason for discontinue is not on file. azithromycin (ZITHROMAX) 250 mg tabl* 1 Pa* 0 06/18/2017 11/13/2017 Class: Print RX Cmt: Take 2 pills on day 1 Day 2-5 take 1 pill per day Route: ORAL Sig: Take 1 tablet by mouth once daily. Patient not taking: Reported on 11/13/2017 Disc: Reason for discontinue is not on file. naproxen (NAPROSYN) 500 mg tablet 60 t* 3 05/09/2017 11/13/2017 Route: ORAL Sig: Take 1 tablet by mouth twice daily as needed (for pain/inflammation). Take with food. Disc: Reason for discontinue is not on file. Disposition: Return in about 6 months (around 05/16/2018). Follow-up and Disposition History Recorded Encounter Status:Closed by UTE CIFUENTES on 11/13/17 [facility] Observed: 10/02/2017 Status: COMPLETED Source: [place] 12:00 AM [facility] REPOSITORY Letter Text Juan Daniel Stern [address] [facility] [address] 10/02/2017 [facility] #: [id number] Dear , Due to a change in the provider's schedule it has been necessary to reschedule your Appointment. Your original appointment was scheduled for 11/07/2017 at 11:20 AM with María Cruz M.D. Your new appointment is now scheduled on 11/13/2017 at 2:20 AM with Ute Glynn CNP. If this new appointment is not convenient for you, please contact our office at [phone]. Thank you for choosing the [facility] as your Healthcare Provider . Sincerely, Internal Medicine Appointment Office PROGRESS Observed: 06/18/2017 Status: COMPLETED Source: [place] 12:25 PM [facility] REPOSITORY HNO ID: [id number] Author: Teodoro (Dharmesh) Service: (none) Author Type: Nurse Practitioner Type: Progress Notes Filed: 06/18/2017 2:34 PM Note Text: Subjective HPI HPI Juan Daniel Stern is a 36 year old female who presents today for CC of worsening cough over 7 days. Has tried otc medication with out relief. Symptoms are worsened by nothing. Risk factors sick exposure at home. Review of Systems Constitutional: Negative for chills, fever and weight loss. HENT: Positive for congestion. Negative for ear pain, nosebleeds and sore throat. Respiratory: Positive for cough. Negative for shortness of breath and wheezing. Musculoskeletal: Negative for neck pain. Skin: Negative for itching and rash. PAST MEDICAL HISTORY Diagnosis Date - Allergic rhinitis - Depression with anxiety 04/14/2010 - GERD (gastroesophageal reflux disease) - Migraine with aura 04/14/2010 - Morbid obesity with BMI of 50.0-59.9, adult (HCC) PAST SURGICAL HISTORY Procedure Laterality Date - DANDC, DIAG AND/OR THERAPEUTIC Dilation AND curettage - REMOVAL GALLBLADDER Cholecystectomy ALLERGIES Review of patient's allergies indicates no known allergies. MEDICATIONS fluticasone (FLONASE) 50 mcg/actuation nasal spray Use 2 Sprays in each nostril once daily. naproxen (NAPROSYN) 500 mg tablet Take 1 tablet by mouth twice daily as needed (for pain/inflammation). Take with food. Omeprazole 40 mg capsule TAKE 1 CAPSULE BY MOUTH EVERY DAY FAMILY HISTORY Problem Relation Age of Onset - Diabetes Maternal Grandfather - PARKINSONS [OTHER] Paternal Grandfather - Diabetes Maternal Grandmother - Hypertension Maternal Grandmother - Diabetes Mother - Hypertension Mother - Diabetes Father - Dementia [OTHER] Father Front Temperal - Heart Maternal Uncle CO - Diabetes Maternal Uncle Social History Substance Use Topics - Smoking status: Former Smoker Packs/day: 0.50 Years: 6.00 Types: Cigarettes Quit date: 05/03/2010 - Smokeless tobacco: Never Used - Alcohol use No Blood pressure 128/88, pulse 89, temperature 36.8 ?C (98.3 ?F), temperature source Tympanic, resp. rate 20, weight (!) 141.5 kg (312 lb), SpO2 97 %. Objective Physical Exam Constitutional: She is oriented to person, place, and time and well-developed, well-nourished, and in no distress. Non-toxic appearance. She does not have a sickly appearance. No distress. HENT: Head: Normocephalic and atraumatic. Right Ear: Hearing, tympanic membrane, external ear and ear canal normal. Left Ear: Hearing, tympanic membrane, external ear and ear canal normal. Nose: Nose normal. Mouth/Throat: Uvula is midline, oropharynx is clear and moist and mucous membranes are normal. Eyes: Conjunctivae and lids are normal. Pupils are equal, round, and reactive to light. Right eye exhibits no discharge. Left eye exhibits no discharge. No scleral icterus. Neck: Trachea normal and normal range of motion. Neck supple. Cardiovascular: Normal rate, regular rhythm and normal heart sounds. Pulmonary/Chest: Effort normal. She has wheezes (scattered). She has rhonchi (scattered). Persistent loose cough during exam After nebulizer treatment, breath sounds improved though scattered wheezes remained. Lymphadenopathy: She has no cervical adenopathy. Neurological: She is alert and oriented to person, place, and time. Skin: No rash noted. She is not diaphoretic. ASSESSMENT/PLAN: 1. Bronchitis - ICD9: 490, ICD10: J40 (primary diagnosis) - Discussed supportive care, given educational handout - Limit exposure to smoke and other inhaled irritants - Discussed possible red flags and when to seek medical attention - Follow up in 3-5 days or sooner if no better or worse -If you experience chest pain/shortness of breath go to ER - AZITHROMYCIN 250 MG TABLET - PREDNISONE 20 MG TABLET 2. Wheezing - ICD9: 786.07, ICD10: R06.2 Improvement noticed after nebulizer treatment - ALBUTEROL SULFATE 2.5 MG/3 ML (0.083 %) SOLUTION FOR NEBULIZATION Prescription instructions reviewed with patient as applicable. Patient advised if symptoms do not improve or if symptoms worsen sooner, to contact the office for further evaluation by their primary care physician. Potential red flag symptoms discussed with the patient. Reviewed appropriate action plan to take if red flag symptoms occur. Patient agreeable to treatment plan. Teodoro Manning CNP CNOV Observed: 05/22/2017 Status: COMPLETED Source: [place] 11:15 AM [facility] REPOSITORY Office Visit ([facility]OO[facility]) LEENAJUAN DANIEL HOLMAN Shahana ([id number]) 1980 F Date Time Provider Department 05/22/17 11:15 AM KINA SAMANIEGO (DHARMESH) [facility] During your visit today, we recorded the following information about you: Blood pressure Weight Height Last Period 128/80 142.3 kg 1.59 m 05/18/17 KINA SAMANIEGO CNP 05/22/2017 12:05 PM Signed Juan Daniel Shahana Leena is a 36 year old who presents for her annual gynecologic exam without complaints. Her mother went through menopause at age 38. Menses: cycles every 22-32 days and 4-6 days of flow. Contraception: vasectomy HPV vaccine: No Last Pap: 2013 normal HPV: negative History of abnormal pap: No Last mammogram: 2015 diagnotic for fatty tissue Sexually active: Yes Pain with intercourse: No Postcoital bleeding: No Hot flashes: Yes Night sweats: Yes Vaginal dryness: No Obstetric History T3 L3 SAB1 TAB0 Ectopic0 Multiple0 Live Births4 PAST MEDICAL HISTORY Diagnosis Date - Allergic rhinitis - Depression with anxiety 04/14/2010 - GERD (gastroesophageal reflux disease) - Migraine with aura 04/14/2010 - Morbid obesity with BMI of 50.0-59.9, adult (HCC) PAST SURGICAL HISTORY Procedure Laterality Date - DANDamp;C, DIAG AND/OR THERAPEUTIC 7-2001 Dilation ANDamp; curettage - REMOVAL GALLBLADDER Cholecystectomy FAMILY HISTORY Problem Relation Age of Onset - Heart Maternal Uncle CO - Diabetes Maternal Uncle - Diabetes Maternal Grandmother - Hypertension Maternal Grandmother - Diabetes Maternal Grandfather - Diabetes Mother - Hypertension Mother - Diabetes Father - PARKINSONS [Other] [OTHER] Paternal Grandfather - Dementia [Other] [OTHER] Father Front Temperal SOCIAL HISTORY Social History Substance Use Topics - Smoking status: Former Smoker Packs/day: 0.50 Years: 6.00 Types: Cigarettes Quit date: 05/03/2010 - Smokeless tobacco: Never Used - Alcohol use No REVIEW OF SYSTEMS Abdomen: No abdominal pain, nausea, vomiting, diarrhea, or constipation. No bloating, early satiety, indigestion, or increased flatulence. Bladder: No dysuria, gross hematuria, urinary frequency, urinary urgency, or incontinence. Breast: No breast lumps, nipple d/c, overlying skin changes, redness or skin retraction. Allergies and current medication updated:Yes EXAM: There were no vitals taken for this visit. GENERAL: pleasant, female in no apparent distress HEENT: Normocephalic, atraumatic, mucus membranes moist and no lesions NECK: Supple, full range of motion, no adenopathy and thyroid normal DERMATOLOGY: Normal, without lesions, non-icteric and non-hirsute BREAST: soft, non-tender, symmetric, no dominant mass, normal nipple-areolar complex, no lymphadenopathy and no nipple discharge CHEST: Normal inspiratory effort ABDOMEN: soft, non-tender and no masses PELVIC: external genitalia normal, normal Bartholin's glands, urethra, [place]'s glands, no vulvar lesions, no cervical lesions, good vaginal support, physiologic discharge present, normal appearing perineal body and perianal region, well estrogenized BIMANUAL: uterus normal size, shape and consistency, no adnexal masses, non-tender and no cervical motion tenderness RECTOVAGINAL: deferred. NEURO: alert and oriented x3,exam grossly non-focal EXTREMITIES: normal ASSESSMENT/PLAN: 1) Health maintenance: Pap/HPV up to date. Mammogram starting age 40. Calcium/Vitamin D supplementation information provided. Smoking cessation: Smoking cessation encouraged and resources provided. Patient does not smoke. 2) Contraception: vasectomy. Contraceptive options reviewed and information provided. 3) STD screening: Declined STD check. 4) Follow up one year or sooner as needed KINA SAMANIEGO CNP Referring Provider: SELF [[id number]] Allergies As of Date: 05/22/2017 (No Known Allergies) Date Reviewed: 05/22/2017 Reviewed by: Kina Osullivan) Danette - Fully Assessed Primary Visit Diagnosis:Encounter for gynecological examination (general) (routine) without abnormal findings [Z01.419] Prescriptions as of 05/22/2017 Sig: FLUTICASONE 50 MCG/ACTUATION * Use 2 Sprays in each nostril * NAPROXEN 500 MG TABLET Take 1 tablet by mouth twice * OMEPRAZOLE 40 MG CAPSULE,URIEL* TAKE 1 CAPSULE BY MOUTH EVERY* Problem List As Of Date 05/22/2017 Noted Resolved Migraine with aura [G43.109] INVALID FOR* Depression with anxiety [F41.8] INVALID FOR* Viral wart of left thumb [B07.9] INVALID FOR* Intradermal nevus: of L hand prox dorsal 3rd fi*INVALID FOR* Actinic skin damage [L57.8] INVALID FOR* Ephelides [L81.2] INVALID FOR* GERD (gastroesophageal reflux disease) [K21.9] Allergic rhinitis [J30.9] Fibrocystic breast changes [N60.19] INVALID FOR* Morbid obesity with BMI of 50.0-59.9, adult ([facility]* Medications Discontinued During This Encounter benzonatate (TESSALON PERLE) 100 mg * 30 c* 0 03/11/2017 05/22/2017 Route: ORAL Sig: Take 1-2 capsules by mouth three times daily as needed (No more than 6 a day). Patient not taking: Reported on 05/22/2017 Disc: Reason for discontinue is not on file. Disposition: Return in 1 year (on 05/22/2018) for Annual Exam. Follow-up and Disposition History Recorded Encounter Status:Closed by KINA SAMANIEGO on 05/22/17 PROGRESS Observed: 05/22/2017 Status: COMPLETED Source: [place] 11:00 AM [facility] REPOSITORY O ID: [id number] Author: Kina Samaniego Service: (none) Author Type: Nurse Practitioner Type: Progress Notes Filed: 05/22/2017 12:05 PM Note Text: Juan Daniel Stern is a 36 year old who presents for her annual gynecologic exam without complaints. Her mother went through menopause at age 38. Menses: cycles every 22-32 days and 4-6 days of flow. Contraception: vasectomy HPV vaccine: No Last Pap: 2013 normal HPV: negative History of abnormal pap: No Last mammogram: 2015 diagnotic for fatty tissue Sexually active: Yes Pain with intercourse: No Postcoital bleeding: No Hot flashes: Yes Night sweats: Yes Vaginal dryness: No Obstetric History T3 L3 SAB1 TAB0 Ectopic0 Multiple0 Live Births4 PAST MEDICAL HISTORY Diagnosis Date - Allergic rhinitis - Depression with anxiety 04/14/2010 - GERD (gastroesophageal reflux disease) - Migraine with aura 04/14/2010 - Morbid obesity with BMI of 50.0-59.9, adult (HCC) PAST SURGICAL HISTORY Procedure Laterality Date - DANDC, DIAG AND/OR THERAPEUTIC Dilation AND curettage - REMOVAL GALLBLADDER Cholecystectomy FAMILY HISTORY Problem Relation Age of Onset - Heart Maternal Uncle CO - Diabetes Maternal Uncle - Diabetes Maternal Grandmother - Hypertension Maternal Grandmother - Diabetes Maternal Grandfather - Diabetes Mother - Hypertension Mother - Diabetes Father - PARKINSONS [Other] [OTHER] Paternal Grandfather - Dementia [Other] [OTHER] Father Front Temperal SOCIAL HISTORY Social History Substance Use Topics - Smoking status: Former Smoker Packs/day: 0.50 Years: 6.00 Types: Cigarettes Quit date: 05/03/2010 - Smokeless tobacco: Never Used - Alcohol use No REVIEW OF SYSTEMS Abdomen: No abdominal pain, nausea, vomiting, diarrhea, or constipation. No bloating, early satiety, indigestion, or increased flatulence. Bladder: No dysuria, gross hematuria, urinary frequency, urinary urgency, or incontinence. Breast: No breast lumps, nipple d/c, overlying skin changes, redness or skin retraction. Allergies and current medication updated:Yes EXAM: There were no vitals taken for this visit. GENERAL: pleasant, female in no apparent distress HEENT: Normocephalic, atraumatic, mucus membranes moist and no lesions NECK: Supple, full range of motion, no adenopathy and thyroid normal DERMATOLOGY: Normal, without lesions, non-icteric and non-hirsute BREAST: soft, non-tender, symmetric, no dominant mass, normal nipple-areolar complex, no lymphadenopathy and no nipple discharge CHEST: Normal inspiratory effort ABDOMEN: soft, non-tender and no masses PELVIC: external genitalia normal, normal Bartholin's glands, urethra, [place]'s glands, no vulvar lesions, no cervical lesions, good vaginal support, physiologic discharge present, normal appearing perineal body and perianal region, well estrogenized BIMANUAL: uterus normal size, shape and consistency, no adnexal masses, non-tender and no cervical motion tenderness RECTOVAGINAL: deferred. NEURO: alert and oriented x3,exam grossly non-focal EXTREMITIES: normal ASSESSMENT/PLAN: 1) Health maintenance: Pap/HPV up to date. Mammogram starting age 40. Calcium/Vitamin D supplementation information provided. Smoking cessation: Smoking cessation encouraged and resources provided. Patient does not smoke. 2) Contraception: vasectomy. Contraceptive options reviewed and information provided. 3) STD screening: Declined STD check. 4) Follow up one year or sooner as needed KINA SAMANIEGO CNP PROGRESS Observed: 05/09/2017 Status: COMPLETED Source: [place] 7:48 PM [facility] REPOSITORY [facility] ID: [id number] Author: James Mott Service: (none) Author Type: (none) Type: Progress Notes Filed: 05/20/2017 12:26 AM Note Text: 36 year old female here for INACTIVATED INFLUENZA VACCINE. 2919-2140 Season Patient is identified by name and date of : Yes [] CONTRAINDICATIONS color enhanced section Age less than 6 months? No Allergy to eggs, chicken, chicken feathers, or chicken dander? No Allergy to thimerosal (a preservative) or formaldehyde? No History of severe reaction to any vaccine component or a previous dose of influenza vaccination? No History of Guillain-Greenway Syndrome within 6 weeks after a previous influenza vaccine? No Current moderate or severe illness? No Current temperature greater or equal to 100.4F? No History of Bone Marrow Transplant in past 6 months or solid organ transplant in the past 3 months ? No [] VERIFICATION color enhanced section Was the answer Yes for any of the above contraindications? No contraindications present. Acceptable to proceed with vaccine. Patient/guardian agrees the above answers are true to the best of their knowledge? Yes Flu vaccine information sheet given? Yes See immunization activity in [facility] for details of immunizations adminstered today. Patient age: [age] year old For The 4994-3076 Flu Season 6-35 months old: Fluzone 0.25 ml - IM (Preservative Free) 3 years of age: Fluzone 0.5 ml - IM (Preservative Free) 3 years and older: Fluzone 0.5 ml- IM-(with Preservatives) 65+ years old: Fluzone High-Dose 0.5 ml - IM (Preservative Free) REMEMBER: If patient is less than 9 years of age and this is the first vaccine of Influenza to be received in any flu season, they should receive a second dose in one months time. PROGRESS Observed: 05/09/2017 Status: COMPLETED Source: [place] 7:45 PM [facility] REPOSITORY O ID: [id number] Author: María Cruz Service: (none) Author Type: Physician Type: Progress Notes Filed: 05/20/2017 12:26 AM Note Text: Patient presents with: 6 mo f/up Imm/Inj: Flu Vaccine SUBJECTIVE: Juan Daniel Stern is a 36 year old year old lady here today for 6 month follow up appointment for review of medical conditions. Had added 1 to 2 pops over the holiday. Already cutting out of diet. Got exercise bike before the holidays. Plans to start now that holidays done. PAST MEDICAL HISTORY Diagnosis Date - Allergic rhinitis - Depression with anxiety 04/14/2010 - GERD (gastroesophageal reflux disease) - Migraine with aura 04/14/2010 - Morbid obesity with BMI of 50.0-59.9, adult (HCC) Current Outpatient Prescriptions: benzonatate (TESSALON PERLE) 100 mg capsule Take 1-2 capsules by mouth three times daily as needed (No more than 6 a day). fluticasone (FLONASE) 50 mcg/actuation nasal spray Use 2 Sprays in each nostril once daily. Omeprazole 40 mg capsule TAKE 1 CAPSULE BY MOUTH EVERY DAY ibuprofen (MOTRIN) 800 mg tablet Take 1 tablet by mouth every 8 hours as needed for Pain. Take with food. oxybutynin ER (DITROPAN XL) 15 mg 24 hr Extended Rel Tab Take 1 tablet by mouth once daily. No current facility-administered medications for this visit. OBJECTIVE: BP 153/101 (BP Site: Right Arm, BP Position: Sitting, BP Cuff Size: Regular Adult) Pulse 79 Resp 8 Wt (!) 141.1 kg (311 lb) BMI 56.88 kg/m2 Patient is alert, oriented times 3, no apparent distress, affect is bright, reactive. Last 5 Encounter BP Readings: Date: BP: 05/09/2017 153/101[bp machine right forearm[ 03/11/2017 142/84 03/05/2017 126/82 09/07/2016 128/80 06/19/2016 124/80 Last 5 Encounter Wt Readings: Date: Wt: 05/09/2017 141.1 kg (311 lb) 03/11/2017 144.2 kg (318 lb) 03/05/2017 142.4 kg (314 lb) 09/07/2016 136.2 kg (300 lb 3.2 oz) 06/19/2016 132 kg (291 lb) Heart: Regular rate, rhythm, no murmurs, gallops, rubs. Lungs: Clear to auscultation, bilaterally, breathing non labored. Ext: No cyanosis, clubbing, or edema. ASSESSMENT AND PLAN: Encounter Diagnosis ICD-10-CM 1. Non-seasonal allergic rhinitis, unspecified chronicity, unspecified trigger J30.89 fluticasone (FLONASE) 50 mcg/actuation nasal spray 2. Migraine with aura and without status migrainosus, not intractable G43.109 naproxen (NAPROSYN) 500 mg tablet 3. Dysmenorrhea N94.6 naproxen (NAPROSYN) 500 mg tablet getting perimenopausal; ibuprofen effective 4. Need for vaccination Z23 INFLUENZA VACCINE QUADRIVALENT AGE 3 YRS PLUS + IM 5. Class 3 severe obesity due to excess calories without serious comorbidity with body mass index (BMI) of 50.0 to 59.9 in adult ([facility]) E66.01 Z68.43 Above issues addressed with patient. Patient involved in shared decision making for management of her medical issues. History and medications reviewed. Epic updated as needed Refills taken care of and meds adjusted as indicated after reviewed history, exam and labs. Health Maintenance reviewed. Updated record and/or ordered tests as recorded. Encouraged on efforts at healthy diet and regular exercise and adequate sleep. Needs to keep working on diet and exercise with lifestyle changes for effective weight loss. The majority of the visit was spent counseling and/or coordinating care for the patient. Yseu-hi-fbdz time was at least 20 minutes. María Cruz MD Over 50% of this a minute visit was spent counseling about above issues. María Cruz MD CNOV Observed: 05/09/2017 Status: COMPLETED Source: [place] 7:00 PM [facility] REPOSITORY Office Visit (INTMWS) JUAN DANIEL STERN ([id number]) 1980 F Date Time Provider Department 05/09/17 7:00 PM MARÍA CRUZ INTMWS During your visit today, we recorded the following information about you: Pulse Respiration Blood pressure Weight 84/minute 8/minute 114/81 141.1 kg María Cruz MD 05/20/2017 12:26 AM Signed Patient presents with: 6 mo f/up Imm/Inj: Flu Vaccine SUBJECTIVE: Juan Daniel Stern is a 36 year old year old lady here today for 6 month follow up appointment for review of medical conditions. Had added 1 to 2 pops over the holiday. Already cutting out of diet. Got exercise bike before the holidays. Plans to start now that holidays done. PAST MEDICAL HISTORY Diagnosis Date - Allergic rhinitis - Depression with anxiety 04/14/2010 - GERD (gastroesophageal reflux disease) - Migraine with aura 04/14/2010 - Morbid obesity with BMI of 50.0-59.9, adult ([facility]) Current Outpatient Prescriptions: benzonatate (TESSALON PERLE) 100 mg capsule Take 1-2 capsules by mouth three times daily as needed (No more than 6 a day). fluticasone (FLONASE) 50 mcg/actuation nasal spray Use 2 Sprays in each nostril once daily. Omeprazole 40 mg capsule TAKE 1 CAPSULE BY MOUTH EVERY DAY ibuprofen (MOTRIN) 800 mg tablet Take 1 tablet by mouth every 8 hours as needed for Pain. Take with food. oxybutynin ER (DITROPAN XL) 15 mg 24 hr Extended Rel Tab Take 1 tablet by mouth once daily. No current facility-administered medications for this visit. OBJECTIVE: BP 153/101 (BP Site: Right Arm, BP Position: Sitting, BP Cuff Size: Regular Adult) Pulse 79 Resp 8 Wt (!) 141.1 kg (311 lb) BMI 56.88 kg/m2 Patient is alert, oriented times 3, no apparent distress, affect is bright, reactive. Last 5 Encounter BP Readings: Date: BP: 05/09/2017 153/101[bp machine right forearm[ 03/11/2017 142/84 03/05/2017 126/82 09/07/2016 128/80 06/19/2016 124/80 Last 5 Encounter Wt Readings: Date: Wt: 05/09/2017 141.1 kg (311 lb) 03/11/2017 144.2 kg (318 lb) 03/05/2017 142.4 kg (314 lb) 09/07/2016 136.2 kg (300 lb 3.2 oz) 06/19/2016 132 kg (291 lb) Heart: Regular rate, rhythm, no murmurs, gallops, rubs. Lungs: Clear to auscultation, bilaterally, breathing non labored. Ext: No cyanosis, clubbing, or edema. ASSESSMENT AND PLAN: Encounter Diagnosis ICD-10-CM 1. Non-seasonal allergic rhinitis, unspecified chronicity, unspecified trigger J30.89 fluticasone (FLONASE) 50 mcg/actuation nasal spray 2. Migraine with aura and without status migrainosus, not intractable G43.109 naproxen (NAPROSYN) 500 mg tablet 3. Dysmenorrhea N94.6 naproxen (NAPROSYN) 500 mg tablet getting perimenopausal; ibuprofen effective 4. Need for vaccination Z23 INFLUENZA VACCINE QUADRIVALENT AGE 3 YRS PLUS + IM 5. Class 3 severe obesity due to excess calories without serious comorbidity with body mass index (BMI) of 50.0 to 59.9 in adult ([facility]) E66.01 Z68.43 Above issues addressed with patient. Patient involved in shared decision making for management of her medical issues. History and medications reviewed. Epic updated as needed Refills taken care of and meds adjusted as indicated after reviewed history, exam and labs. Health Maintenance reviewed. Updated record and/or ordered tests as recorded. Encouraged on efforts at healthy diet and regular exercise and adequate sleep. Needs to keep working on diet and exercise with lifestyle changes for effective weight loss. The majority of the visit was spent counseling and/or coordinating care for the patient. Pwjt-ui-dphp time was at least 20 minutes. María Cruz MD Over 50% of this a minute visit was spent counseling about above issues. María Cruz MD James Tiera 05/20/2017 12:26 AM Signed 36 year old female here for INACTIVATED INFLUENZA VACCINE. 1409-9282 Season Patient is identified by name and date of : Yes [] CONTRAINDICATIONS color enhanced section Age less than 6 months? No Allergy to eggs, chicken, chicken feathers, or chicken dander? No Allergy to thimerosal (a preservative) or formaldehyde? No History of severe reaction to any vaccine component or a previous dose of influenza vaccination? No History of Guillain-Greenway Syndrome within 6 weeks after a previous influenza vaccine? No Current moderate or severe illness? No Current temperature greater or equal to 100.4F? No History of Bone Marrow Transplant in past 6 months or solid organ transplant in the past 3 months ? No [] VERIFICATION color enhanced section Was the answer ANDquot;YesANDquot; for any of the above contraindications? No contraindications present. Acceptable to proceed with vaccine. Patient/guardian agrees the above answers are true to the best of their knowledge? Yes Flu vaccine information sheet given? Yes See immunization activity in [facility] for details of immunizations adminstered today. Patient age: [age] year old For The 2186-5895 Flu Season 6-35 months old: Fluzone 0.25 ml - IM (Preservative Free) 3 years of age: Fluzone 0.5 ml - IM (Preservative Free) 3 years and older: Fluzone 0.5 ml- IM-(with Preservatives) 65+ years old: Fluzone High-Dose 0.5 ml - IM (Preservative Free) REMEMBER: If patient is less than 9 years of age and this is the first vaccine of Influenza to be received in any flu season, they should receive a second dose in one months time. María Cruz MD 05/09/2017 8:38 PM Signed Goals for exercise: Start with bike for 1 song daily then increase as able to 2 songs. Ideally 150 minutes of exercise per week over at least 5 days a week in at least 10 minutes blocks. Nutrition goals: Avoid pepsi (small can if decide to have one and knock out other calories somewhere else). Keep up protein with carbs. Keep up portion control. Try to follow plate method. Half non-starchy veggies. Referring Provider: NO PCP [[id number]] Allergies As of Date: 05/09/2017 (No Known Allergies) Date Reviewed: 05/09/2017 Reviewed by: James Mott - Fully Assessed Reason for Visit: 6 mo f/up [Other] Imm/Inj [58] Cmt: Flu Vaccine Reason For Visit History Recorded Primary Visit Diagnosis:Non-seasonal allergic rhinitis, unspecified chronicity, unspecified trigger [J30.89] Other Visit Diagnoses:Migraine with aura and without status migrainosus, not intractable [G43.109] Dysmenorrhea [N94.6] Comment:getting perimenopausal; ibuprofen effective Need for vaccination [Z23] Class 3 severe obesity due to excess calories without serious comorbidity with body mass index (BMI) of 50.0 to 59.9 in adult ([facility]) [E66.01, Z68.43] Order(s):INFLUENZA VACCINE QUADRIVALENT AGE 3 YRS PLUS + IM [[id number]] Order #: [id number] fluticasone (FLONASE) 50 mcg/actuation nasal sprayUse 2 Sprays in each nostril once daily.Disp: 1 BottleRfl: 1 naproxen (NAPROSYN) 500 mg tabletTake 1 tablet by mouth twice daily as needed (for pain/inflammation). Take with food.Disp: 60 tabletRfl: 3 Prescriptions as of 05/09/2017 Sig: FLUTICASONE 50 MCG/ACTUATION * Use 2 Sprays in each nostril * BENZONATATE 100 MG CAPSULE Take 1-2 capsules by mouth th* OMEPRAZOLE 40 MG CAPSULE,URIEL* TAKE 1 CAPSULE BY MOUTH EVERY* NAPROXEN 500 MG TABLET Take 1 tablet by mouth twice * Medication notes this encounter OXYBUTYNIN CHLORIDE ER 15 MG TABLET,EXTENDED RELEASE 24 HR >> James Mott 05/09/2017 7:46 PM >> JAMES MOTT May 09, 2017 7:46 PM No longer taking; ineffective. Problem List As Of Date 05/09/2017 Noted Resolved Migraine with aura [G43.109] INVALID FOR* Depression with anxiety [F41.8] INVALID FOR* Viral wart of left thumb [B07.9] INVALID FOR* Intradermal nevus: of L hand prox dorsal 3rd fi*INVALID FOR* Actinic skin damage [L57.8] INVALID FOR* Ephelides [L81.2] INVALID FOR* GERD (gastroesophageal reflux disease) [K21.9] Allergic rhinitis [J30.9] Fibrocystic breast changes [N60.19] INVALID FOR* Morbid obesity with BMI of 50.0-59.9, adult ([facility]* Other instructions from your clinician: Goals for exercise: Start with bike for 1 song daily then increase as able to 2 songs. Ideally 150 minutes of exercise per week over at least 5 days a week in at least 10 minutes blocks. Nutrition goals: Avoid pepsi (small can if decide to have one and knock out other calories somewhere else). Keep up protein with carbs. Keep up portion control. Try to follow plate method. Half non-starchy veggies. Prescriptions ordered this encounter Disp Refills Start End FLUTICASONE 50 MCG/ACTUATION NASAL S* 1 Will* 1 05/09/2017 Route: EACH NOSTRIL Sig: Use 2 Sprays in each nostril once daily. NAPROXEN 500 MG TABLET 60 t* 3 05/09/2017 Route: ORAL Sig: Take 1 tablet by mouth twice daily as needed (for pain/inflammation). Take with food. Medications Discontinued During This Encounter oxybutynin ER (DITROPAN XL) 15 mg 24* 30 t* 11 09/11/2015 05/09/2017 Route: ORAL Sig: Take 1 tablet by mouth once daily. Disc: Reason for discontinue is not on file. fluticasone (FLONASE) 50 mcg/actuati* 1 Will* 0 03/05/2017 05/09/2017 Route: EACH NOSTRIL Sig: Use 2 Sprays in each nostril once daily. Disc: Reason for discontinue is not on file. ibuprofen (MOTRIN) 800 mg tablet 60 t* 3 03/14/2016 05/09/2017 Route: ORAL Sig: Take 1 tablet by mouth every 8 hours as needed for Pain. Take with food. Disc: Reason for discontinue is not on file. Disposition: Return in about 6 months (around 11/06/2017) for 6 months follow up. Follow-up and Disposition History Recorded Encounter Status:Closed by MARÍA CRUZ MD on 05/20/17 ALLERGIES ALLERGIES DATE TYPE / CODE NAME / CODE REACTION SEVERITY SOURCE 04/01/2018 Drug No Known Unknown [facility] Allergy/416 Allergies/Y68900 [facility] 920921(SNOM 0388(RXNORM) Repository ED CT) Drug NO KNOWN [facility] Class/98309 ALLERGIES [address] [place] 1003(SNOMED Repository CT) ENCOUNTERS ENCOUNTERS ADMIT/DISCHARGE ACCOUNT ADMITTING ENCOUNTER LOCATION SOURCE NUMBER CLASS 04/03/2018/04/03/20 [id number] Ambulatory [address] Repository 04/03/2018/04/04/20 [id number] Ambulatory [address] Repository 04/01/2018/04/01/20 [id number] Emergency [place] [address] ing:ED Repository 03/24/2018/03/26/20 [id number] Ambulatory [address] Repository 01/27/2018/01/30/20 [id number] Ambulatory [address] Repository 11/13/2017/11/15/19 [id number] Ambulatory [address] Repository 06/18/2017/02/20 [id number] Ambulatory [address] Repository 05/22/2017/05/23/19 [id number] Ambulatory [address] Repository 05/09/2017/05/22/19 [id number] Ambulatory [address] Repository PAYERS PAYERS ENCOUNTER GUARANTOR PAYER SUBSCRIBER SOURCE 04/01/2018 JUAN DANIEL STERN507 Primary JUAN DANIEL GILLESPIE Insurance:CARESOURCEP CASSIODOB: [facility] Number: [id number] [address]Upr: [phone] [id number] Repository [phone] () Date:2018-04-01[address]ATTN: [place] [address]ZY: 04/01/2018 Secondary NOT GIVENBLADE Lui Insurance:SELF PAY [facility] Number: Effective Repository Date:2018-04-01
== END 2018-04-01 10:19 | disposition home or self-care (01) ==
LOC: ED 09:09
PROVIDERS: Emergency Provider Emergency Medicine; Family Provider Internal Medicine; PCP Internal Medicine
DX: R10.2 Pelvic and perineal pain (principal); K21.9 Gastro-esophageal reflux disease without esophagitis; Z90.49 Acquired absence of other specified parts of digestive tract
CPT/HCPCS: 81001; 81025; 99283

== ENCOUNTER → 2018-07-12 20:00 | Outpatient (CLI) | payer MEDICAID, SELFPAY | PROVIDERS: Family Provider Internal Medicine; PCP Internal Medicine; Referring Provider Internal Medicine; Visit Provider Internal Medicine | DX: G47.10 Hypersomnia, unspecified (principal); R06.83 Snoring; F32.9 Major depressive disorder, single episode, unspecified | CPT/HCPCS: 95811 ==

== ENCOUNTER 2020-07-09 07:56 | Day surgery (SDC) | payer MEDICAID, SELFPAY ==
--- NOTE | 2020-07-08 08:03 | PCM.HP.BLA ---
History and Physical Date of Admission: 07/09/20 Domitila King is a 39 year old female who presents for problem visit-concern for abnormal uterine bleeding. Patient recently saw DHARMESH Samaniego for endometrial biopsy which came back benign. Patient is concerned because she was doing well on the progesterone therapy but at this time has had bleeding consistently every day. She states that the flow ranges from light to moderate. She said that the flow is unpredictable but she is bleeding at least a little bit every day. Patient declines further hormonal management and would like to proceed with endometrial ablation. Patient offers no other concerns at this time.. Pt is scheduled for Hysteroscopy, Tila Ablation on 07/09/20. consent signed today. ? PAST MEDICAL HISTORY PAST MEDICAL HISTORY Diagnosis Date ? Allergic rhinitis ? ? Depression with anxiety 04/14/2010 ? GERD (gastroesophageal reflux disease) ? ? Migraine with aura 04/14/2010 ? Morbid obesity with BMI of 50.0-59.9, adult ([facility]) ? ? MIGUELANGEL (obstructive sleep apnea) 09/06/2018 ? DME [facility] ? PAST SURGICAL HISTORY PAST SURGICAL HISTORY Procedure Laterality Date ? D&C, DIAG AND/OR THERAPEUTIC ? ? Dilation & curettage ? REMOVAL GALLBLADDER ? ? ? Cholecystectomy ? FAMILY HISTORY FAMILY HISTORY Problem Relation Age of Onset ? Diabetes Maternal Grandfather ? ? other (PARKINSONS) Paternal Grandfather ? ? Diabetes Maternal Grandmother ? ? Hypertension Maternal Grandmother ? ? Diabetes Mother ? ? Hypertension Mother ? ? Diabetes Father ? ? other (Dementia) Father ? ? Front Temperal ? Heart Maternal Uncle ? ? [place] ? Diabetes Maternal Uncle ? ? SOCIAL HISTORY Social History ? Tobacco Use ? Smoking status: Current Every Day Smoker ? ? Packs/day: 0.50 ? ? Types: Cigarettes ? ? Start date: 06/02/2018 ? Smokeless tobacco: Never Used ? Tobacco comment: Working on quitting smoking Substance Use Topics ? Alcohol use: No ? Drug use: No ? CURRENT MEDICATIONS Current Outpatient Medications Medication Sig ? norethindrone (AYGESTIN) 5 mg tablet Take 2 tablets by mouth once daily. ? ibuprofen (MOTRIN) 800 mg tablet Take 1 tablet by mouth every 8 hours as needed for Pain. Take with food. ? Omeprazole 40 mg capsule Take 1 capsule by mouth once daily. ? cyclobenzaprine (FLEXERIL) 10 mg tablet Take 1 tablet by mouth three times daily as needed for Muscle Spasm. ? valACYclovir (VALTREX) 1 gram tab Take 2 tablets by mouth q 12 HR. for 2 doses. May repeat for recurrent cold sores ? CPAP New set up: Settings 5 - 20 cm H2O, suitable mask per pt preference, chin strap, head gear, humidity, tubing, lifetime supplies. G47.33 Obstructive Sleep Apnea ? No current facility-administered medications for this visit. ? Allergies As of Date: 06/29/2020 (No Known Allergies) Fully Assessed 06/23/2020 ? ? REVIEW OF SYSTEMS Abdomen: no pain Bladder: no dysuria .. Allergies and current medication updated:Yes ? EXAM: BP 134/76 Wt 239 lb (108.4kg) LMP 06/02/2020 GENERAL: pleasant, female in no apparent distress HEENT: Normocephalic and atraumatic NECK: full range of motion DERMATOLOGY: Normal, without lesions, non-icteric and non-hirsute NEURO: alert and oriented x3,exam grossly non-focal Ultrasound results: RESULT: Uterus size: 8.5 x 6.7 x 4.3 cm ?? ? -Orientation: Anteverted ?? ? -Myometrium: Heterogeneous myometrium without focal mass. ?? ? -Endometrial echo complex: Not well visualized but is estimated at approximately 5 mm transvaginally. ?? ? -Cervix: normal Right ovary: 2.8 x 2.5 x 1.7 cm. ?? Normal sonographic appearance. There are normal follicular changes. Arterial and venous vascular flow is identified. Left ovary: Not visualized. ?No obvious adnexal masses. Free fluid: None ? ASSESSMENT AND PLAN: Encounter Diagnosis ? ? ICD-10-CM ? 1. Abnormal uterine bleeding (AUB) N93.9 ? ? 2. Discussed options with the patient including Mirena IUD, continued use of progesterone p.o. therapy versus endometrial ablation. Patient would like to proceed with endometrial ablation at this time. We discussed in office versus at the hospital. Patient would like to proceed at [facility] if timing works out otherwise she will consider in the office. 3. Reviewed endometrial biopsy results and reviewed her ultrasound results. Discussed that the myometrium was slightly heterogeneous which could indicate adenomyosis but this is not indicative 100%. Patient understands that if she does have adenomyosis she could potentially fail the ablation. We discussed failure of the ablation and options after that. Preoperative visit was done today. 4. Pt was counseled on risks of surgery and verbalized understanding. Pt understands risks of bleeding, infection, uterine perforation which can lead to subsequent injuries to pelvic structures including but not limited to bowel, ureters, bladder and vessels. pt would like to proceed. ? Latosha Escobedo MD ? Procedure Criteria Procedure Type: Elective COVID Risk Discussion: The surgeon/proceduralist and patient have discussed in detail the risk of exposure to and/or potential harm posed by the COVID-19 virus with having a surgery/procedure at this time versus the risk of delaying the surgery/procedure. It is not possible to know either the risk of delaying the surgery or procedure or chance of getting an infection with perfect accuracy, but a joint decision was made between the patient and the surgeon/proceduralist to proceed at this time with the scheduled surgery/procedure as indicated on the consent form.
[2020-07-09] VITALS (9 sets, daily range): BP systolic 115–131; BP diastolic 72–85; PULSE 64–83; RESP 16; TEMP 36.2–37.7; O2SAT 16–98; BMI 42.2
[2020-07-09 08:25] LABS: Internal QC Validated? YES +Cl - CLEAR BKGD; Pregnancy, Urine Negative Negative
[2020-07-09 08:34] LABS: Hematocrit 41.5 % (37-47); Hemoglobin 13.7 g/dL (12.0-15.0); Mean Corpuscular Hgb 29.8 pg (27.0-32.0); Mean Corpuscular Volume 90.4 fL (81-99); Mean Platelet Vol. 8.6 fl (6.2-12.0); Platelet Count 384 K/mm3 (150-450); RBC Distribution Width CV 13.4 % (11.6-14.6); RBC Distribution Width SD 45.1 fl (35.1-43.9); Red Blood Count 4.59 M/mm3 (4.2-5.4); White Blood Count 7.3 K/mm3 (4.4-11.0)
[2020-07-09] MEDS: Lactated Ringers 1,000 ML 100 ML IV (08:34)
--- NOTE | 2020-07-09 09:05 | DCINST_ITS ---
Discharge Diet: No Restrictions Discharge Activity: Return to Normal Activity, May Shower, May Take a Tub Bath - in 2 weeks. May resume sexual activity in: 1 week Call your doctor if you observe: Fever of 101 or Higher, Using more than one pad per hour Allergies/Adverse Reactions: Allergies No Known Allergies Allergy (Verified 07/09/20 08:03) Medications to take at Discharge Omeprazole 40 mg PO DAILY 04/01/18 Ibuprofen [Motrin] 800 mg PO TID PRN PRN 07/03/20 Norethindrone [Aygestin] 10 mg PO DAILY 07/03/20 Primary Care Physician: Rekha Cruz MD [Primary Care Provider] - Test Results: Test results from this visit will be discussed in further detail at your follow- up appointment, if applicable. Please Follow Up With: Latosha Escobedo MD When: 2 weeks call [phone] to schedule
--- NOTE | 2020-07-09 09:24 | OP.PCM_ITS ---
Report of Operation Date of Procedure: 07/09/20 - start 913 end 923 Pre-Operative Diagnosis: AUB Post-Operative Diagnosis: same Surgery/Procedure Performed:: hysteroscopy, D&C, Tila ablation Description of Surgical Findings:: normal cavity- retroverted. Tubal ostia visualized. anhydrous ammonia production supervisor: karen hull MS3 Type of Anesthesia:: MAC Specimen's removed: Endometrial curettings Drains: none Estimated Blood Loss (mL): 5 Fluids Replaced: 800 Description of Procedure: After informed consent was obtained patient taken to the operating room she is placed in supine position she is given anesthesia and she is prepped draped normal sterile fashion. Bladder was drained prior to the start of the procedure. At this time the weighted speculum was placed the posterior fornix of the vagina then a single-tooth tenaculum was used to grasp the anterior lip of the cervix. At this time the uterus was sounded to approximately 8.5 cm the endocervical canal sounded to 4 cm. Next cervix was dilated in incremental fashion. Once adequate dilatation was achieved the hysteroscope was inserted using normal saline as distention medium. On hysteroscopy there were no gross abnormalities. Both tubal ostia were visualized. At this time sharp curettage was performed which yielded small amount of endometrial tissue. tissue will be sent to pathology for evaluation. At this time the Tila device was opened. The Tila was set at 4.5 cm. The device was activated. Prior to activation the field test was performed and cavity was intact. The device was then fired and activated for 120 seconds. Once the 120 seconds was completed the device was removed intact and the tenaculum was removed. Good hemostasis was appreciated. Weighted speculum was removed. Vaginal sweep was performed is negative. There were no complications. Anticipated normal postoperative course for this patient. Instrument and lap count were correct ?2. Grafts/Implants Used: none - Complications none - Admit VTE Documentation VTE Present on Admission: Yes VTE Mechan Device Prophylaxis: SCD's VTE Pharm Prophylaxis ordered?: No
--- NOTE | 2020-07-09 09:35 | EMB_PTH ---
PATIENT: JUAN DANIEL VALDEZ LOC: [facility] [place] U#:[id number] AGE/SX: 39/F ROOM: RE07/09/[address]: Dr. Latosha Escobedo, MDDOB: 1980 BED: DIS: 07/09/2020 SPEC #: [id number] RECD: 07/09/20 12:51 STATUS: CHRISTAL MCCABE #: [id number] RICHARD: 07/09/20 09:[address]: Latosha Escobedo DEPT: SURGICAL PATHOLOGY RECD BY: Rosa Jewell ENTERED: 07/10/20 08:23 SP TYPE: ENDOM BX/C OT DR: Dr. Rekha Cruz MD Tissues: Endometrium, NOS Procedures: Surgery Specimen Level IV HEADER OPERATION: Hysteroscopy, endometrial ablation, Tila D & Juan Carlos PRE-OP DIAGNOSIS: Abnormal uterine bleeding TISSUE SUBMITTED: Endometrial curettings MICROSCOPIC DIAGNOSIS Endometrium, curettings: Pseudodecidual stromal benign hyperplasia. Strips of benign superficial endocervix with squamous metaplasia and chronic inflammation. AM:willian 07/13/2020 MICROSCOPIC DESCRIPTION Slides are reviewed. GROSS DESCRIPTION Received in fixative is one container labeled with the patient's name and designated endometrial curettings. The specimen consists of multiple fragments of hemorrhagic soft tissue mixed with blood clot that in aggregate measure 5 x 3 x 0.2 cm. The entire specimen is submitted in two cassettes. / AILYN:willian 07/10/20 TC:5 CPT: 95385
== END 2020-07-09 10:45 | disposition home or self-care (01) ==
LOC: SDC 07:58 → AC 08:02
PROVIDERS: Anesthesiology; PCP Internal Medicine; Referring Provider Obstetrics & Gynecology; Visit Provider Obstetrics & Gynecology
PROC: 0U5B8ZZ Destruction of Endometrium, Via Natural or Artificial Opening Endoscopic (ICD-10-PCS; CPT 58558; principal; 2020-07-09 09:20)
DX: N85.01 Benign endometrial hyperplasia (principal); E66.01 Morbid (severe) obesity due to excess calories; G47.33 Obstructive sleep apnea (adult) (pediatric); Z68.43 Body mass index [BMI] 50.0-59.9, adult; K21.9 Gastro-esophageal reflux disease without esophagitis; F41.9 Anxiety disorder, unspecified; F32.9 Major depressive disorder, single episode, unspecified; F17.210 Nicotine dependence, cigarettes, uncomplicated; Z79.899 Other long term (current) drug therapy
CPT/HCPCS: 58563; 81025; 85027; 87426; 88305; C9803; J7120; J2405

== ENCOUNTER 2020-10-08 05:29 | Day surgery (SDC) | payer MEDICAID, SELFPAY ==
[2020-07-09 08:30] VITALS: BMI 42.2
--- NOTE | 2020-10-06 12:15 | HP.PCM_ITS ---
History and Physical Date of Admission: 10/08/20 Latosha Harper MD Physician Specialty: ELECTRICAL CONTROL ASSEMBLER H&P ? Signed Encounter Date: 10/02/2020 Hide copied text [place] for details Pre-Op History and Physical ? HPI: The patient is a 22 year old female presenting for pre-operative visit. She is scheduled for , for elective repeat cs if no spontaneous labor prior to 40 weeks on 10/09/20. Procedure discussed along with risks, benefits and complications. Other alternatives discussed for management. Consent form signed? Yes. ? ? PAST MEDICAL HISTORY Diagnosis Date ? Attention deficit disorder with hyperactivity(314.01) ? ? childhood seizure ? ? age 3-no recurrences ? Genital HSV ? ? depression ? ? depression ? ? Vocal cord dysfunction 08/29/2011 ? ? PAST SURGICAL HISTORY Procedure Laterality Date ? ANESTH, SECTION ? ? ? DELIVERY ONLY ? 07/14/15 ? , low transverse ? D&C SUCTION ? 06/25/2019 ? delayed hemorrhage after D&C ? D+C ? 06/18/2019 ? 7 weeks missed ab ? TYMPANOSTOMY LOCAL; UNILATERAL ? Current Outpatient Medications Medication Sig Dispense Refill ? acyclovir (ZOVIRAX) 400 mg tablet Take 1 tablet by mouth twice daily. 60 tablet 1 ? vit 91/iron/folic/dha ( + DHA ORAL) Take by mouth. ? ? ? No current facility-administered medications for this visit. ? ? ALLERGIES: Adhesive Tape (Rosins); Latex, Natural Rubber; and Reglan [Metoclopramide] ? PERSONAL HISTORY: Social History ? Tobacco Use ? Smoking status: Former Smoker ? ? Types: Cigarettes ? ? Quit date: 01/02/2017 ? ? Years since quittin.7 ? Smokeless tobacco: Never Used Vaping Use ? Vaping Use: Never used Substance Use Topics ? Alcohol use: No ? Drug use: No ? FAMILY HISTORY: FAMILY HISTORY Problem Relation Age of Onset ? No Known Problems Mother ? ? Diabetes Father ? ? No Known Problems Brother ? ? No Known Problems Brother ? ? No Known Problems Sister ? ? No Known Problems Brother ? ? Heart Maternal Grandfather ? ? Lipids Maternal Grandfather ? ? Stroke Maternal Grandmother ? ? Diabetes Paternal Grandmother ? ? Cancer Maternal Aunt ? ? smoker- Lung ? No Known Problems Son ? ? ? REVIEW OF SYMPTOMS: negative except as noted above PHYSICAL EXAMINATION: ? VITALS: Blood pressure 132/76, weight 206 lb (93.4 kg), last menstrual period 12/28/2019. ? GENERAL: The patient is well nourished, well hydrated in no acute distress. , The patient is oriented to time, place, and person. NECK: full range of motion ABD: gravid, non tender. FHR 134bpm GENITALIA: normal, no lesions. ? IMPRESSION: @ 39 weeks- elective repeat cs at 40 weeks scheduled if no spontaneous labor prior to that time. ? PLAN: Elective Repeat cs at 40 weeks gestation. ? I have reviewed and updated past medical and surgical history, medications and allergies Latosha Harper MD ?4:48 PM Pre-Op History and Physical ? HPI: The patient is a 39 year old female presenting for question regarding surgical management for endometrial simple hyperplasia. Patient underwent a hysteroscopy, D&C, Tila ablation in June 2020 the pathology specimen from that shows simple hyperplasia. Patient was counseled regarding inability to resample the endometrium after an ablation and consultation with PROJECT MANAGEMENT SPECIALIST oncology recommends proceeding with a hysterectomy for definitive therapy. ? She is scheduled for LAVH and bilateral salpingectomy, cystoscopy, for simple endometrial hyperplasia status post endometrial ablation on 10/08/20. Procedure discussed along with risks, benefits and complications. Other alternatives discussed for management. Consent form signed? Yes. ? ? PAST MEDICAL HISTORY PAST MEDICAL HISTORY Diagnosis Date ? Allergic rhinitis ? ? Depression with anxiety 04/14/2010 ? GERD (gastroesophageal reflux disease) ? ? Migraine with aura 04/14/2010 ? Morbid obesity with BMI of 50.0-59.9, adult (HCC) ? ? MIGUELANGEL (obstructive sleep apnea) 09/06/2018 ? DME [facility] ? ? PAST SURGICAL HISTORY PAST SURGICAL HISTORY Procedure Laterality Date ? D&C, DIAG AND/OR THERAPEUTIC ? 10/29/2001 ? Dilation & curettage ? D&C, DIAG AND/OR THERAPEUTIC ? 07/09/2020 ? HYSTEROSCOPY,W/ENDOMETRIAL ABLATION ? 07/09/2020 ? Tila ablation ? REMOVAL GALLBLADDER ? ? ? Cholecystectomy ? ? ? CURRENT MEDICATIONS Current Outpatient Medications Medication Sig Dispense Refill ? ibuprofen (MOTRIN) 800 mg tablet Take 1 tablet by mouth every 8 hours as needed for Pain. Take with food. 60 tablet 3 ? omeprazole (PRILOSEC) 40 mg capsule Take 1 capsule by mouth once daily as needed. As directed 30 capsule 1 ? cyclobenzaprine (FLEXERIL) 10 mg tablet Take 1 tablet by mouth three times daily as needed for Muscle Spasm. 24 tablet 0 ? norethindrone (AYGESTIN) 5 mg tablet Take 2 tablets by mouth once daily. 60 tablet 5 ? valACYclovir (VALTREX) 1 gram tab Take 2 tablets by mouth q 12 HR. for 2 doses. May repeat for recurrent cold sores 4 tablet 5 ? CPAP New set up: Settings 5 - 20 cm H2O, suitable mask per pt preference, chin strap, head gear, humidity, tubing, lifetime supplies. G47.33 Obstructive Sleep Apnea 1 Device 0 ? oxyCODONE-acetaminophen (PERCOCET) 5-325 mg tablet Take 1 tablet by mouth every 6 hours as needed for up to 5 days. FOR PAIN. 10 tablet 0 ? simethicone, chewable (MYLICON) 80 mg chewable tablet Take 1 tablet by mouth every 6 hours as needed. 30 tablet 0 ? docusate sodium (COLACE) 100 mg capsule Take 1 capsule by mouth twice daily. 60 capsule 2 ? No current facility-administered medications for this visit. ? ? ALLERGIES: Patient has no known allergies. ? PERSONAL HISTORY: SOCIAL HISTORY Social History ? Tobacco Use ? Smoking status: Current Every Day Smoker ? ? Packs/day: 0.50 ? ? Types: Cigarettes ? ? Start date: 06/02/2018 ? Smokeless tobacco: Never Used ? Tobacco comment: Working on quitting smoking Vaping Use ? Vaping Use: Never used Substance Use Topics ? Alcohol use: No ? Drug use: No ? FAMILY HISTORY: FAMILY HISTORY FAMILY HISTORY Problem Relation Age of Onset ? Diabetes Maternal Grandfather ? ? other (PARKINSONS) Paternal Grandfather ? ? Diabetes Maternal Grandmother ? ? Hypertension Maternal Grandmother ? ? Diabetes Mother ? ? Hypertension Mother ? ? Diabetes Father ? ? other (Dementia) Father ? ? [place] ? Heart Maternal Uncle ? ? [place] ? Diabetes Maternal Uncle ? ? ? REVIEW OF SYMPTOMS: negative except as noted above PHYSICAL EXAMINATION: ? VITALS: Blood pressure 128/84, height 5' 3 (1.6 m), weight 236 lb (107 kg), last menstrual period 06/02/2020. ? GENERAL: The patient is well nourished, well hydrated in no acute distress. , The patient is oriented to time, place, and person. NECK: Supple. No lynphadenopathy, normal thyroid, no thyromegaly. LUNGS: Clear to auscultation bilaterally. no wheezes, rhonchi or rales HEART: Regular rate and rhythm, Normal heart sounds and No murmurs or gallops GENITALIA: deferred ? IMPRESSION: Simple endometrial hyperplasia s/p endometrial ablation ? PLAN: LAVH, Bilateral salpingectomy, cystoscopy ? Medicaid hysterectomy consent signed- pt verbalized understanding that this would make her sterile with no future childbearing capabilities. ? Pt has been counseled on risks/benefits and alternatives of surgery including but not limited to anesthesia, bleeding, infection, injury to pelvic structures including bowel, bladder, ureters and vessels. Pt wishes to proceed with surgery at this time. ? ERAS reviewed- Pre op Instructions reviewed Letter for work given- 6 weeks- labor intense job ? ? ? I have reviewed and updated past medical and surgical history, medications and allergies Latosha Harper MD ?
[2020-10-07 14:52] LABS: Hematocrit 38.8 % (37-47); Hemoglobin 13.1 g/dL (12.0-15.0); Mean Corp Hgb Conc 33.8 g/dL (32-36); Mean Corpuscular Hgb 30.5 pg (27.0-32.0); Mean Corpuscular Volume 90.4 fL (81-99); Mean Platelet Vol. 8.7 fl (6.2-12.0); Platelet Count 314 K/mm3 (150-450); RBC Distribution Width CV 13.5 % (11.6-14.6); RBC Distribution Width SD 44.4 fl (35.1-43.9); Red Blood Count 4.29 M/mm3 (4.2-5.4)
[2020-10-07 17:27] LABS: Internal QC Validated? YES +Cl - CLEAR BKGD; Pregnancy, Urine Negative Negative
[2020-10-08] VITALS (17 sets, daily range): BP systolic 95–129; BP diastolic 53–85; PULSE 52–105; RESP 16–18; TEMP 36.2–37.6; O2SAT 92–100; BMI 42.0
[2020-10-08 06:14] LABS: Internal QC Validated? YES +Cl - CLEAR BKGD; Pregnancy, Urine Negative Negative
[2020-10-08] MEDS: Phenazopyridine 95 MG Tablet 190 MG PO (06:47)
[2020-10-08] MEDS: Celecoxib 200 MG Capsule 400 MG PO (06:48)
[2020-10-08] MEDS: Enoxaparin 40 MG/0.4 ML Syringe SC (06:49)
[2020-10-08] MEDS: dexAMETHasone 10 MG/ML Vial 8 MG IV (06:50)
[2020-10-08] MEDS: Gabapentin 600 MG Tablet PO (07:04)
[2020-10-08] MEDS: Scopolamine 1mg/72hr Patch 1 PATCH TD (07:04)
[2020-10-08] MEDS: Lactated Ringers 1,000 ML 40 ML IV ×4 (07:05→21:11)
[2020-10-08] MEDS: Acetaminophen 500 MG Tablet 1000 MG PO ×3 (07:05→18:01)
[2020-10-08 07:26] LABS: Bedside Glucose 90 mg/dL (70-110)
[2020-10-08] MEDS: Cefazolin 2 GM in 0.9% Normal Saline 100 ML IV (07:29)
--- NOTE | 2020-10-08 07:30 | HYST_PTH ---
PATIENT: JUAN DANIEL VALDEZ [place] [facility] [id number] AGE/SX: 39/F ROOM: RE10/08/[address]: Dr. Latosha Escobedo, MDDOB: 1980 BED: DIS: 10/09/2020 SPEC #: [id number] RECD: 10/08/20 11:50 STATUS: CHRISTAL ESTELLE #: [id number] RICHARD: 10/08/20 07:[address]: Latosha Escobedo DEPT: SURGICAL PATHOLOGY RECD BY: Rosa Jewell ENTERED: 10/08/20 12:51 SP TYPE: HYSTERECT OTHR DR: Dr. Rekha Cruz MD Tissues: Uterus, NOS Procedures: Surgery Specimen Level V HEADER OPERATION: ERAS, hysterectomy, LAVH, salpingectomy, cysto PRE-OP DIAGNOSIS: Simple endometrial hyperplasia status post endometrial ablation TISSUE SUBMITTED: Uterus, cervix and bilateral fallopian tubes MICROSCOPIC DIAGNOSIS Uterus, hysterectomy: Cervix ? nabothian cysts, squamous metaplasia and mild chronic inflammation. Endometrium ? inactive endometrium with extensive denudation consistent with previous biopsy. Myometrium ? focal adenomyosis. Right fallopian tube ? benign paratubal cysts. Left fallopian tube ? no pathologic change. AM:willian 10/09/2020 MICROSCOPIC DESCRIPTION Slides are reviewed. GROSS DESCRIPTION Received in fixative is one container labeled with the patient's name and designated uterus. The specimen consists of a uterus with attached left fallopian tube and detached right fallopian tube. The uterus with cervix measures 9 x 6.5 x 4.8 cm and weighs 110 gm. The ectocervix is oval and grossly unremarkable. The endocervical canal measures 3 cm in length and is grossly unremarkable. The elongated endometrial cavity measures 3 x 2 cm. The light gutierrez endometrium measures up to 0.2 cm in thickness. The myometrium measures 2 cm in average thickness and is free of mass lesions. The right fallopian tube measures 4 cm in length and 0.5 cm in average diameter. The left fallopian tube measures 6.6 cm in length and 0.6 cm in average diameter. Technical Business Analyst sections are submitted in ten cassettes as follows: 1 - anterior cervix, 2 - posterior cervix, 3-5 - entire anterior endometrium and adjacent myometrium, 6-8 - entire posterior endometrium and adjacent myometrium, 9 - right fallopian tube, 10??left fallopian tube. / AM:willian 10/08/20 TC:5 CPT: 91676
[2020-10-08] MEDS: Lubricating Jelly 60 GM Tube 30 GM TOPICAL (07:50)
[2020-10-08] MEDS: Lidocaine 1% /Epi 1:100 (20ml) 20 ML Vial (08:20)
[2020-10-08] MEDS: Bupivacaine 0.5% PF 10 ML VIAL (09:08)
--- NOTE | 2020-10-08 09:09 | PCM.OPRPT ---
Problems Associated Problem List Diagnoses (1) Simple endometrial hyperplasia: (2) S/P endometrial ablation: Report of Operation Date of Procedure: 10/08/20 Pre-Operative Diagnosis: simple endometrial hyperplasia, S/p Endometrial ablation Post-Operative Diagnosis: same Surgery/Procedure Performed:: LAVH, Bilateral salpingectomy, cystoscopy Description of Surgical Findings:: Normal tubes and ovaries bilaterally Surgeon: Latosha Escobedo pressing department supervisor: Sylvie Corarl Type of Anesthesia: General and Local Special Medications: 0.5% marcaine, 1% lidocaine with epinephrine Specimen's removed: Uterus, cervix, bilateral tubes Drains: none Estimated Blood Loss (mL): 25 Fluids Replaced: 1700 Description of Procedure: Patient take to OR and prepped and draped in usual sterile fashion in dorsal lithotomy position with her arms tucked in a neurologically safe and neutral position. The uterus sounded to 8 cm. The Loaded Pocket uterine manipulator and ohara were placed. Attention was turned to the abdomen. All port sites were infiltrated with 0.5%marcaine before the incisions were made. The anterior abdominal wall was tented up with towel clamps and using a direct visualization entry approach a 5 mm intraumbilical port was placed. Intraperitoneal placement was confirmed with the laparoscope and the pneumoperitoneum was created. The patient was placed in Trendelenburg and 5 mm right and left lower quadrant ports were placed under direct visualization. The bowel was swept away. Ovaries appeared normal. The mesosalpinx starting at fibriated end were grasped, clamped, sealed and transected with the Ligasure. The round ligaments were divided. The anterior peritoneum was dissected down to create the bladder flap with blunt dissection and the LigaSure. The uterine arteries were isolated, clamped, sealed and cut. There was minimal back bleeding from the uterus. Attention was turned to the vaginal portion of the case. The anterior vagina was infiltrated w/ lidocaine with dilute epinephrine. A circumferential incision was made with scalpel, anterior colpotomy was made with blunt and sharp dissection. The posterior culdesac was entered sharpy with curved evans scissors. Heny clamps were placed, pedicles were transected and suture ligated. this was performed on cardinal and uterosacral ligaments. Once the uterus was freed the specimen was removed without difficulty. The specimen was handed off. The posterior Peritoneum was run with 2-0 vicryl. Modificed Mccalls stictch placed using 2-0 PDS. The cuff was closed with interrupted 0-vicryl figure of 8 sutures. Cystoscopy performed. both ureteral jets noted, bladder intact. The pneumoperitoneum was recreated and the cuff and pedicles were hemostatic. The ureters were both seen and peristalsing. The skin incisions were closed with skin glue and 3-0 monocryl. The vaginal sweep was completed by me. assitant helped to retract, creat counter traction, manipulate camera. No qualified resident available for case. Grafts/Implants Used: none Grafts/Implants Used: none Procedure Start Time: 07:50 Procedure Stop Time: 09:16 Complications none Admit VTE Documentation VTE Present on Admission: Yes VTE Mechan Device Prophylaxis: SCD's VTE Pharm Prophylaxis ordered?: Yes
--- NOTE | 2020-10-08 09:20 | PCM.DC ---
Discharge Instructions Diet Discharge Diet: No restrictions Activity Discharge Activity: May Not Drive (while taking narcotics. may drive when pain controlled. ) and May Shower Return to work on:: 11/19/20 May shower in (days): 1 May resume sexual activity in: 6-8 weeks Weight Bearing Status: Full weight bearing Lifting Restrictions: 20 Additional Activity Instructions:: NOTHING IN THE VAGINA x 6-8 weeks. Dressing / Incision Call your doctor if your incision/area has: Continuous Slow Oozing, Sudden Increased Bleeding, Increased Pain/ Swelling, Increased Redness, Foul Smelling Discharge and Swelling at the incision site Call your doctor if you observe: Fever of 101 or Higher, Inability to have a bowel movement, Using more than 1 pad per hour and Uncontrolled pain Change Dressing in: leave in place till F/U (you have skin glue over incision sites- do not pick off) Cleanse incision/area with: Soap & Water, Keep Dressing Clean & Dry and - (you may let soap and water run over incision sites and dab dry. ) Follow Up Care Please Follow Up With: Latosha Escobedo MD When: 2 weeks as scheduled for post op visit Test Results: Test results from this visit will be discussed in further detail at your follow-up appointment, if applicable. Discharge Plan Admission Primary Reason for Your Visit: HYSTERECTOMY Attending Provider: Latosha Escobedo Primary Care Provider: Rekha Cruz Discharge Orders/Prescriptions Prescriptions: No Action omeprazole 40 MG capsule,delayed release(DR/EC) 40 mg PO DAILY RF: 0 ibuprofen 800 MG tablet 800 mg PO TID PRN PRN (Reason: Pain 1-10 Or Fever) RF: 0 norethindrone acetate 5 MG tablet 10 mg PO DAILY RF: 0 Referrals / Follow Up: Rekha Cruz MD [Primary Care Provider] -
[2020-10-08] MEDS: Ondansetron 4 MG/2 ML Vial IV (09:43)
[2020-10-08] MEDS: oxyCODONE 5 MG Tablet PO (11:43)
[2020-10-08 12:32] LABS: Hematocrit 38.7 % (37-47); Hemoglobin 12.8 g/dL (12.0-15.0); Mean Corp Hgb Conc 33.1 g/dL (32-36); Mean Corpuscular Hgb 30.4 pg (27.0-32.0); Mean Corpuscular Volume 91.9 fL (81-99); Mean Platelet Vol. 8.6 fl (6.2-12.0); Platelet Count 280 K/mm3 (150-450); RBC Distribution Width CV 13.5 % (11.6-14.6); Red Blood Count 4.21 M/mm3 (4.2-5.4); White Blood Count 11.4 K/mm3 (4.4-11.0)
[2020-10-08] MEDS: Ketorolac 30 MG/ML Syringe IV (15:59)
--- NOTE | 2020-10-08 17:55 | NURSING ---
1705 pt to room and oriented to bed,call light and phone, scopolamine patch dc'd to behind rt ear to see if helps dizziness. up to room and pt ordering
[2020-10-08] MEDS: Docusate Sodium 100 MG Capsule PO (21:11)
[2020-10-09 00:52] VITALS: BP 119/70; PULSE 56; RESP 16; TEMP 36.6; O2SAT 97
[2020-10-09] MEDS: Acetaminophen 500 MG Tablet 1000 MG PO ×2 (00:55→06:32)
[2020-10-09 05:09] LABS: Hematocrit 34.2 % (37-47); Hemoglobin 11.2 g/dL (12.0-15.0); Mean Corp Hgb Conc 32.7 g/dL (32-36); Mean Corpuscular Hgb 30.3 pg (27.0-32.0); Mean Corpuscular Volume 92.4 fL (81-99); Mean Platelet Vol. 9.3 fl (6.2-12.0); Platelet Count 284 K/mm3 (150-450); RBC Distribution Width CV 13.7 % (11.6-14.6); RBC Distribution Width SD 46.6 fl (35.1-43.9)
[2020-10-09 05:24] VITALS: BP 126/73; PULSE 65; RESP 17; TEMP 36.6; O2SAT 98
[2020-10-09 07:29] VITALS: BP 116/74; PULSE 64; RESP 16; TEMP 36.6; O2SAT 97
--- NOTE | 2020-10-09 09:03 | PCM.PN.BLA ---
Progress Note pain well controlled. Minimal vaginal bleeding. Denies nausea or vomiting. Tolerating regular diet. Ready for discharge home. Physical Exam Narrative Awake, alert, no acute distress. Abdomen soft, nondistended, appropriate tenderness. Incisions are clean dry and intact with skin glue. Assessment & Plan Assessment/Plan (1) Postoperative pain: PLAN: Postoperative day #1 status post laparoscopic-assisted vaginal hysterectomy. Reviewed operative findings and course with patient. She is doing well. Reviewed discharge instructions. She is to follow-up in the office in 1 to 2 weeks or as needed. Prescriptions were given per Dr. Harper. Patient is comfortable with plan.
== END 2020-10-09 09:46 | disposition home or self-care (01) ==
LOC: SDC 05:30 → AC 05:31 → MS3 16:31
PROVIDERS: Anesthesiology; PCP Internal Medicine; Referring Provider Obstetrics & Gynecology; Visit Provider Obstetrics & Gynecology
PROC: 0UT9FZZ Resection of Uterus, Via Natural or Artificial Opening With Percutaneous Endoscopic Assistance (ICD-10-PCS; CPT 58552; principal; 2020-10-08 07:05)
DX: N85.01 Benign endometrial hyperplasia (principal); A60.00 Herpesviral infection of urogenital system, unspecified; K21.9 Gastro-esophageal reflux disease without esophagitis; E66.01 Morbid (severe) obesity due to excess calories; F17.210 Nicotine dependence, cigarettes, uncomplicated; G47.33 Obstructive sleep apnea (adult) (pediatric); Z79.899 Other long term (current) drug therapy; Z68.43 Body mass index [BMI] 50.0-59.9, adult
CPT/HCPCS: 58552; 36415; 81025; 82962; 83735; 85027; 86850; 86900; 86901; 87426; 88307; 94762; 99251; C9803; J7120; G0463; J2405

== ENCOUNTER 2023-12-26 14:49 | Emergency (ER) | payer OTHER, SELFPAY ==
[2023-12-26 14:50] VITALS: BP 144/86; PULSE 104; RESP 18; TEMP 36.2; O2SAT 99
--- NOTE | 2023-12-26 15:08 | EDS_ITS ---
HPI History of Present Illness Chief Complaint: Lower Extremity Injury Narrative Narrative: Patient is a 43-year-old female with past medical history of GERD, MIGUELANGEL who presents to the emergency department chief complaint of left knee pain. Patient states that on Monday when she woke up she noted that she had some left knee discomfort and noted that prior to this when she went to bed her knee felt fine she is unsure what she did. Patient denies any specific trauma or injury to her knee. Patient states that she had been controlling the pain throughout the course of the rest of the week with ibuprofen and had been ambulating just fine. States that she was leaving work and noted that she was going outside of 3 stairs when she felt a pop in the back of her knee and states that she could not bear weight after this prompting her to come here for further evaluation management. Once again patient did not fall or have any other trauma to this left knee. PFSH PFS Medical History Wears glasses Gastric reflux Sleep apnea Smoker Home Medications ?Medication ?Instructions ?Recorded ?Last Taken ?Type omeprazole 40 mg capsule,delayed 40 mg PO DAILY 04/01/18 Unknown History release ibuprofen 800 mg tablet 800 mg PO TID PRN PRN Pain 1-10 Or 07/03/20 Unknown History Fever norethindrone acetate 5 mg tablet 10 mg PO DAILY 07/03/20 Unknown History Allergy/AdvReac Type Severity Reaction Status Date / Time No Known Allergies Allergy Verified 12/26/23 14:49 Surgical History History of hysteroscopy (~07/09/20) Hx laparoscopic cholecystectomy Social History Smoking Status: Current every day smoker tobacco type: cigarettes ROS ROS ED ROS Narrative Constitutional: Denies any fevers, chills, headaches complaints of dizziness Cardiovascular: Denies chest pain Respiratory: Denies shortness of breath Neurological: Denies any numbness, weakness or tingling Musculoskeletal: Complains of left knee pain as noted above Skin: Denies any rashes lesions EXAM Physical Exam Narrative Exam Narrative: General: Patient was lying in bed rest comfortably did not appear to be in acute distress Head: Atraumatic, normocephalic Eyes: PERRL bilaterally, EOMI bilaterally, no conjunctival injection noted Neck: Soft, supple, trachea midline Cardiovascular: Regular in rhythm no murmurs gallops rubs noted Respiratory: Clear to auscultation bilaterally Musculoskeletal: Patient is full range of motion of her left knee passively and states that she has pain with attempted active range of motion. All of the bony prominences palpated no pain elicited Extremities: +5/5 strength noted in the bilateral upper and lower extremities, no pedal edema neuroexam, radial pulses +2/4 in the bilateral upper extremities, DP pulses +2/4 in the bilateral lower extremities Neurological: Patient was following commands knew that she was at [facility] years 2023 Skin: Warm, dry, intact no rashes or lesions noted Const Vital Signs: 12/26/23 14:50 Temperature 97.2 F L Temperature Source Temporal Pulse Rate 104 H Respiratory Rate 18 Blood Pressure 144/86 H Blood Pressure Mean 105 Pulse Ox 99 Oxygen Delivery Method Room Air MDM MDM MDM Narrative Medical decision making narrative: Patient is a 43-year-old female who presented to the emerged part with chief complaint of left knee pain. Patient well the workup performed on the differential diagnose includes but not limited to Stone's cyst, musculoskeletal strain, pathological fracture. Once workup is obtained and reviewed she will be reevaluated. Patient states that she has not had pain meds since this morning she will be given IM Toradol. Patient's x-ray reviewed and showed no acute fracture or dislocation. Patient was able ambulate however she did stop some pain she is requesting crutches. She is advised to ice, elevate, rotate Tylenol and ibuprofen [id number]. She was given referral to orthopedic surgery as well as encouraged follow-up with primary care physician in 2 to 3 days. Patient was encouraged return with worsening symptoms or other concerns. Patient would like to go home at this point in time all question concerns were answered bedside. Radiography Diagnostic Testing: Clinical Impression(s) from Imaging Studies Knee X-Ray 12/26/23 15:20 IMPRESSION: Normal x-ray examination of the knee. Electronically Signed: Amilcar Ogden MD at 15:33 EDT , Discharge Plan Triage Chief Complaint: Lower Extremity Injury ED Provider: Juan J Champion Dx/Rx/DC Orders Clinical Impression: Acute pain of left knee Instructions: ED Knee Sprain Prescriptions: No Action omeprazole 40 MG capsule,delayed release(DR/EC) 40 mg PO DAILY ibuprofen 800 MG tablet 800 mg PO TID PRN PRN (Reason: Pain 1-10 Or Fever) norethindrone acetate 5 MG tablet 10 mg PO DAILY Primary Care Provider: Rekha Cruz Referrals: Rekha Cruz MD [Primary Care Provider] - Gilmer Hawkins DO [Med Staff - Active Staff] - Activity Restrictions/Additional Instructions: Ambulate as tolerated on your left knee. Ice, elevate, rotate Tylenol and ibuprofen [id number]. Follow-up with orthopedic surgery for which she referred to as well as your primary care physician. Return with worsening symptoms or any other concerns. Print Language: Telugu Disposition Disposition: Home, Self Care
--- NOTE | 2023-12-26 15:20 | RAD_ITS ---
STUDY: X-RAY - LEFT KNEE REASON FOR EXAM: Female, 43 years old. [place] pop behind knee no injury TECHNIQUE: 3 view(s) of the knee. COMPARISON: None. FINDINGS: Normal visualized distal femur. Normal visualized proximal tibia and fibula. Normal proximal tibiofibular articulation. Normal medial femorotibial compartment. Normal lateral femorotibial compartment. Normal patellofemoral articulation. The soft tissue structures are unremarkable. RAD/Knee 3 Views IMPRESSION: Normal x-ray examination of the knee. Electronically Signed: Amilcar Ogden MD at 15:33 EDT ,
[2023-12-26] MEDS: Ketorolac 30 MG/ML Syringe IM (15:26)
== END 2023-12-26 16:16 | disposition home or self-care (01) ==
PROVIDERS: Emergency Provider Emergency Medicine; PCP Internal Medicine; Visit Provider Emergency Medicine
DX: M25.562 Pain in left knee (principal); F17.210 Nicotine dependence, cigarettes, uncomplicated; G47.33 Obstructive sleep apnea (adult) (pediatric)
CPT/HCPCS: 73562; 96372; 99283